=== PATIENT | male | born 1965 | race American Indian/Alaskan Native ===

== ENCOUNTER 2019-07-28 13:28 | Emergency (ER) | payer SELFPAY ==
--- NOTE | 2019-07-28 13:47 | Event Note ---
ED Screening Note Date of service: 07/28/19 Time: 13:43 ED Screening Note: Pt complains of nasal pain and congestion x 5 days denies hx of HTN states mild cough This initial assessment/diagnostic orders/clinical plan/treatment(s) is/are subject to change based on patients health status, clinical progression and re- assessment by fellow clinical providers in the ED. Further treatment and workup at subsequent clinical providers discretion. Patient/guardian urged not to elope from the ED as their condition may be serious if not clinically assessed and managed. Initial orders include: labs
--- NOTE | 2019-07-28 15:00 | Emergency Department Report ---
Minor Respiratory - HPI Chief Complaint: Upper Respiratory Infection Stated Complaint: FLU SYMPTOMS Time Seen by Provider: 07/28/19 13:42 Duration: 5 Days Pain Location: Facial, Nose Severity: mild Minor Respiratory: Yes Rhinorrhea, Yes Able to Tolerate Fluids, Yes Cough, No Sore Throat, No Ear Pain, No Sick Contacts, No Hemoptysis, No Chest Pain, No Shortness of Breath, No Fever Other History: This is a pleasant 54-year-old gentleman who is not known to this provider previously. He does not have a primary care doctor, has not seen a physician in 4 years, and does not have any formal medical history that he is aware of. He does not smoke cigarettes or consume any inhalational substances. He presents to the ER with 5 days of "flulike symptoms." He endorses sinus pressure, cough, nasal congestion. He denies severe headache, neck pain, chest pain, abdominal pain, shortness of breath, fever, chills. He denies additional symptoms. As far as he knows, he has no formal diagnosis of hypertension. ED Review of Systems ROS: Stated complaint: FLU SYMPTOMS Other details as noted in HPI Constitutional: see HPI. denies: fever Eyes: as per HPI ENT: congestion Respiratory: cough Cardiovascular: as per HPI Gastrointestinal: as per HPI Genitourinary: as per HPI Musculoskeletal: as per HPI Skin: as per HPI Neurological: as per HPI Psychiatric: as per HPI ED Past Medical Hx - Past Medical History Previous Medical History?: No - Surgical History Past Surgical History?: No - Social History Smoking Status: Never Smoker Substance Use Type: None - Medications Home Medications: Home Medications Medication Instructions Recorded Confirmed Last Taken Type Albuterol Sulfate [Proair 90 mcg IH Q4HR PRN #2 aer.[email or web address] 07/28/19 Unknown Rx Respiclick] Fluticasone [Flonase] 1 spray NS QDAY #1 bottle 07/28/19 Unknown Rx Ibuprofen [Motrin] 600 mg PO Q8H PRN #30 tablet 07/28/19 Unknown Rx Multivitamin with Folic Acid [Cvs 400 mcg PO QDAY #30 tablet 07/28/19 Unknown Rx One Daily Essential Tablet] Minor Respiratory Exam - Exam General: Vital signs noted. No distress. Alert and acting appropriately. HEENT: Yes Moist Mucous Membranes, Yes Rhinorrhea, No Pharyngeal Erythema, No Pharyngeal Exudates, No Conjuctival Injection, No Frontal Tenderness, No Maxillary Tenderness Ear: Neither EAC Pain, Neither EAC Discharge Neck: Yes Supple, No Adenopathy Lungs: Yes Good Air Exchange, No Wheezes, No Ronchi, No Stridor, No Cough, No Labored Respirations, No Retractions, No Use of Accessory Muscles, No Other Abnormal Lung Sounds Heart: Yes Regular, No Murmur Abdomen: Yes Normal Bowel Sounds, No Tenderness, No Peritoneal Signs Skin: No Rash, No Edema Neurologic: Alert and oriented, no deficits. there is no facial droop. The tongue is midline. Extraocular movements are intact bilaterally. Patient speaking in full complete sentences. Shoulder shrug is intact bilaterally. Hearing is grossly intact bilaterally. Visual acuity intact to finger counting and color perception at a close distance. 5/5 strength 4 extremities. Sensation intact to light touch in 4 extremities. 2+ pulses noted in the bilateral upper, lower extremities. There is no long bone tenderness. Musculoskeletal compartments are soft. The pelvis is stable. Musculoskeletal: Unremarkable. ED Course Vital Signs 07/28/19 13:42 Temperature 99.6 F Pulse Rate 86 Respiratory 20 Rate Blood Pressure 195/129 O2 Sat by Pulse 97 Oximetry ED Medical Decision Making - Lab Data Vital Signs 07/28/19 13:42 Temperature 99.6 F Pulse Rate 86 Respiratory 20 Rate Blood Pressure 195/129 O2 Sat by Pulse 97 Oximetry - Medical Decision Making Differential diagnosis, including but not limited to: Cold, viral syndrome, sinusitis, incidental elevated blood pressure Assessment and plan: 54-year-old gentleman who is afebrile with reassuring vital signs with the exception of incidental hypertension, with cold-like symptoms, including cough, nasal congestion, sinus pressure. Symptoms present for over 5 days. Clinically does not sound consistent with influenza-like illness, and given duration of symptoms, is not a candidate for Tamiflu. Counseled patient that he likely has cold/viral symptoms, and we discussed expectant management. Please reference the [employer] clinical policy on hypertension which is asymptomatic. Patient is instructed to follow-up with an outpatient primary care doctor for further evaluation of elevated blood pressure. We discussed diet, lifestyle modifications, and weight loss recommendations. Critical care attestation.: If time is entered above; I have spent that time in minutes in the direct care of this critically ill patient, excluding procedure time. ED Disposition Clinical Impression: Bronchitis, Elevated blood pressure reading Disposition: [id number] TO HOME OR SELFCARE Is pt being admited?: No Does the pt Need Aspirin: No Condition: Stable Additional Instructions: Take medications as needed and/or directed. Follow-up with a primary care doctor within the next month. Patient is found to have elevated blood pressure in the emergency room today. He is to follow up with a primary care doctor for this. We also recommend modification of diet, avoidance of carbonated sugary drinks, avoidance of fried food, carbohydrates, and consumption of plenty of lean protein, and vegetables. Long-term complications of hypertension and elevated blood pressure includes stroke, heart attack, disability, paralysis, loss of quality of life. Bronchitis symptoms may persist for up to 6 weeks. There is typically no cure for this. Please return to the emergency room right away with new, worsened, different symptoms, or symptoms not present on the initial emergency room evaluation. Referrals: [facility] [Provider Group] - 3-5 Days [facility] [Provider Group] - 3-5 Days
[2019-07-28 15:01] VITALS: BP 184/110
== END 2019-07-28 15:16 | disposition home or self-care (01) ==
LOC: ED 13:28
DX: J40 Bronchitis, not specified as acute or chronic (principal); R03.0 Elevated blood-pressure reading, without diagnosis of hypertension

== ENCOUNTER 2020-10-11 11:32 | Inpatient (IN) | payer OTHER ==
--- NOTE | 2020-10-11 12:16 | Event Note ---
ED Screening Note ED Screening Note: Patient is a 55-year-old male presents emergency room complaints of chest pain and shortness of breath that has been occurring for a month and a half. He states that he also gets a burning sensation in the epigastric region that goes up into the chest. Patient states last year he was advised that he had elevated blood pressure when he went to see a doctor about his knee but never followed up with a primary care doctor regarding the blood pressure. He is not on any blood pressure medication. He states that he does take aspirin daily due to the chest pain. He has not seen anyone for this chest pain or shortness of breath. He states that he is having exertional shortness of breath and can no longer walk far distances. He denies any known medical problems. No allergies to medications. This initial assessment/diagnostic orders/clinical plan/treatment(s) is/are subject to change based on patients health status, clinical progression and re- assessment by fellow clinical providers in the ED. Further treatment and workup at subsequent clinical providers discretion. Patient/guardian urged not to elope from the ED as their condition may be serious if not clinically assessed and managed. Initial orders include: Chest pain protocol
--- NOTE | 2020-10-11 12:57 | XRay Report ---
CHEST 2 VIEWS INDICATION / CLINICAL INFORMATION: Chest Pain. COMPARISON: None available. FINDINGS: SUPPORT DEVICES: None. HEART / MEDIASTINUM: Enlarged cardiac silhouette. Mediastinal and hilar contours demonstrate no signi ficant abnormality. LUNGS / PLEURA: Mild prominence of the central/perihilar interstitium. No significant effusion. No pn eumothorax. ADDITIONAL FINDINGS: No significant additional findings. IMPRESSION: 1. Mild central/perihilar interstitial opacification suggesting pulmonary congestion/edema. Signer Name: Monroe Huggins MD Signed: 10/11/2020 12:52 PM Workstation Name: [id number]
[2020-10-11 13:45] LABS: Basophils % (Auto) 0.9 % (0.0-1.8); Eosinophils # (Auto) 0.1 K/mm3 (0.0-0.4); Hematocrit 32.4 % (35.5-45.6); Hemoglobin 10.1 gm/dl (11.8-15.2); Lymphocytes # (Auto) 1.1 K/mm3 (1.2-5.4); Lymphocytes % (Auto) 25.6 % (13.4-35.0); Mean Corpuscular HGB Conc 31 % (32-34); Mean Corpuscular Volume 74 fl (84-94); Monocytes # (Auto) 0.3 K/mm3 (0.0-0.8); Monocytes % (Auto) 8.4 % (0.0-7.3); Platelet Count 291 K/mm3 (140-440); Red Blood Count 4.38 M/mm3 (3.65-5.03); Red Cell Distribution Width 18.8 % (13.2-15.2)
[2020-10-11 13:55] LABS: INR 1.28 (0.87-1.13); Partial Thromboplastin Time 33.5 Sec. (24.2-36.6)
[2020-10-11 14:08] LABS: Alanine Aminotransferase 74 units/L (7-56); Albumin 3.4 g/dL (3.9-5); BUN/Creatinine Ratio 18; Blood Urea Nitrogen 22 mg/dL (9-20); Calcium 10.6 mg/dL (8.4-10.2); Hemolysis Index 6
[2020-10-11] MEDS ORDERED: ASPIRIN 81 MG TAB CHEW PO ONE (20:17)
[2020-10-11] MEDS ORDERED: FUROSEMIDE 40 MG/4 ML INJ IV ONE (20:17)
--- NOTE | 2020-10-11 20:21 | Emergency Department Report ---
ED Chest Pain HPI - General Chief Complaint: Chest Pain Stated Complaint: UNK Time Seen by Provider: 10/11/20 12:14 Source: patient Mode of arrival: Ambulatory Limitations: No Limitations - History of Present Illness Initial Comments: This is a 55-year-old -German male presents to the emergency department with complaint of a 1 month history of upper abdominal pain, midsternal chest pain, and shortness of breath. The patient's symptoms have worsened over the past few days which is what prompted him to come to the emergency department. He has not taken anything for his symptoms prior to presentation. The patient also says that the shortness of breath worsens when laying flat or with any exertion. He denies any fever, nausea, vomiting, cough, back pain, constipation or diarrhea. No recent travel or sick contacts at home. He denies any tobacco or illicit drug use. No known exposure to anyone with COVID-19. Patient does not have a primary care physician and says that he has not followed up with a physician regularly for the past 10 years. Therefore the patient denies having any known past medical history. - Related Data Previous Rx's Medication Instructions Recorded Last Taken Type Albuterol Sulfate [Proair 90 mcg IH Q4HR PRN #2 aer.pow.ba 07/28/19 Unknown Rx Respiclick] Fluticasone [Flonase] 1 spray NS QDAY #1 bottle 07/28/19 Unknown Rx Ibuprofen [Motrin] 600 mg PO Q8H PRN #30 tablet 07/28/19 Unknown Rx Multivitamin with Folic Acid [Cvs 400 mcg PO QDAY #30 tablet 07/28/19 Unknown Rx One Daily Essential Tablet] Allergies Allergy/AdvReac Type Severity Reaction Status Date / Time No Known Allergies Allergy Unverified 07/28/19 13:46 Heart Score - HEART Score History: Slightly suspicious EKG: Normal Age: 45-65 Risk factors: No known risk factors Troponin: 1-3x normal limit HEART Score: 2 - Critical Actions Critical Actions: 0-3 pts:0.9-1.7%risk of adverse cardiac event.Candidate for discharge ED Review of Systems ROS: Stated complaint: UNK Other details as noted in HPI Comment: All other systems reviewed and negative Constitutional: denies: chills, fever Eyes: denies: eye pain, vision change ENT: denies: ear pain, throat pain Respiratory: orthopnea, shortness of breath, SOB with exertion Cardiovascular: chest pain. denies: palpitations Gastrointestinal: abdominal pain. denies: vomiting Genitourinary: denies: dysuria, discharge Musculoskeletal: denies: back pain, arthralgia Skin: denies: rash, lesions Neurological: denies: headache, weakness ED Past Medical Hx - Past Medical History Previous Medical History?: No - Social History Smoking Status: Never Smoker Substance Use Type: None - Medications Home Medications: Home Medications Medication Instructions Recorded Confirmed Last Taken Type Albuterol Sulfate [Proair 90 mcg IH Q4HR PRN #2 aer.pow.ba 07/28/19 Unknown Rx Respiclick] Fluticasone [Flonase] 1 spray NS QDAY #1 bottle 07/28/19 Unknown Rx Ibuprofen [Motrin] 600 mg PO Q8H PRN #30 tablet 07/28/19 Unknown Rx Multivitamin with Folic Acid [Cvs 400 mcg PO QDAY #30 tablet 07/28/19 Unknown Rx One Daily Essential Tablet] ED Physical Exam - General Limitations: No Limitations - Other Other exam information: GENERAL: The patient is well-developed well-nourished. HENT: Normocephalic. Atraumatic. Patient has moist mucous membranes. EYES: Extraocular motions are intact. NECK: Supple. Trachea is midline. CHEST/LUNGS: Coarse breath sounds. No tachypnea or accessory muscle use. There is no respiratory distress noted. HEART/CARDIOVASCULAR: Regular. There is no tachycardia. There is no murmur. ABDOMEN: Abdomen is soft. There is epigastric and right upper quadrant abdominal tenderness to palpation. Patient has normal bowel sounds. Obese habitus. SKIN: Skin is warm and dry. NEURO: The patient is awake, alert, and oriented. The patient is cooperative. The patient has no focal neurologic deficits. Normal speech. MUSCULOSKELETAL: There is no tenderness or deformity. There is no limitation range of motion. ED Course Vital Signs 10/11/20 10/11/20 10/11/20 11:45 11:58 20:47 Temperature 97.6 F 97.6 F 98.4 F Pulse Rate 104 H 94 H Respiratory 20 22 Rate Blood Pressure 192/136 Blood Pressure 189/141 [Left] O2 Sat by Pulse 91 98 Oximetry 10/11/20 10/12/20 10/12/20 20:54 01:10 01:46 Temperature Pulse Rate 94 H 99 H 74 Respiratory Rate Blood Pressure 189/141 188/113 173/116 Blood Pressure [Left] O2 Sat by Pulse Oximetry 10/12/20 01:48 Temperature Pulse Rate 75 Respiratory Rate Blood Pressure 173/116 Blood Pressure [Left] O2 Sat by Pulse Oximetry BRIAN score - Brian Score Age > 65: (0) No Aspirin use within the Past 7 Days: (0) No 2 or more Angina events in past 24 hrs: (1) Yes Known CAD with more than 50% Stenosis: (0) No Elevated Cardiac Markers: (0) No ST Deviation Greater than 0.5mm: (0) No ED Medical Decision Making - Lab Data Result diagrams: 10/11/20 12:55 10/11/20 12:55 Lab Results 10/11/20 10/11/20 10/11/20 Range/Units 12:55 12:55 12:55 WBC 4.2 L (4.5-11.0) K/mm3 RBC 4.38 (3.65-5.03) M/mm3 Hgb 10.1 L (11.8-15.2) gm/dl Hct 32.4 L (35.5-45.6) % MCV 74 L (84-94) fl MCH 23 L (28-32) pg MCHC 31 L (32-34) % RDW 18.8 H (13.2-15.2) % Plt Count 291 (140-440) K/mm3 Lymph % (Auto) 25.6 (13.4-35.0) % [place] % (Auto) 8.4 H (0.0-7.3) % Eos % (Auto) 2.0 (0.0-4.3) % Baso % (Auto) 0.9 (0.0-1.8) % Lymph # (Auto) 1.1 L (1.2-5.4) K/mm3 [place] # (Auto) 0.3 (0.0-0.8) K/mm3 Eos # (Auto) 0.1 (0.0-0.4) K/mm3 Baso # (Auto) 0.0 (0.0-0.1) K/mm3 Seg Neutrophils % 63.1 (40.0-70.0) % Seg Neutrophils # 2.6 (1.8-7.7) K/mm3 PT 16.0 H (12.2-14.9) Sec. INR 1.28 H (0.87-1.13) APTT 33.5 (24.2-36.6) Sec. D-Dimer (0-234) ng/mlDDU Sodium 141 (137-145) mmol/L Potassium 4.6 (3.6-5.0) mmol/L Chloride 106.9 (98-107) mmol/L Carbon Dioxide 27 (22-30) mmol/L Anion Gap 12 mmol/L BUN 22 H (9-20) mg/dL Creatinine 1.2 (0.8-1.3) mg/dL Estimated GFR > 60 ml/min BUN/Creatinine Ratio 18 % Glucose 101 H (75-100) mg/dL Hemoglobin A1c (4-6) % Calcium 10.6 H (8.4-10.2) mg/dL Ferritin (30.0-300.0) ng/mL Total Bilirubin 1.50 H (0.1-1.2) mg/dL AST 60 H (5-40) units/L ALT 74 H (7-56) units/L Alkaline Phosphatase 134 H (35-129) units/L Lactate Dehydrogenase (91-180) units/L Troponin T 0.025 (0.00-0.029) ng/mL C-Reactive Protein (0.00-1.30) mg/dL NT-Pro-B Natriuret Pep 2622 H (0-900) pg/mL Total Protein 6.7 (6.3-8.2) g/dL Albumin 3.4 L (3.9-5) g/dL Albumin/Globulin Ratio 1.0 % Triglycerides (2-149) mg/dL Cholesterol (50-199) mg/dL LDL Cholesterol Direct (50-130) mg/dL HDL Cholesterol (40-59) mg/dL Cholesterol/HDL Ratio % Hepatitis A IgM Ab (NonReactive) Hep Bs Antigen (Negative) Hep B Core IgM Ab (NonReactive) Hepatitis C Antibody (NonReactive) 10/11/20 10/11/20 10/11/20 Range/Units 12:55 16:54 20:20 WBC (4.5-11.0) K/mm3 RBC (3.65-5.03) M/mm3 Hgb (11.8-15.2) gm/dl Hct (35.5-45.6) % MCV (84-94) fl MCH (28-32) pg MCHC (32-34) % RDW (13.2-15.2) % Plt Count (140-440) K/mm3 Lymph % (Auto) (13.4-35.0) % [place] % (Auto) (0.0-7.3) % Eos % (Auto) (0.0-4.3) % Baso % (Auto) (0.0-1.8) % Lymph # (Auto) (1.2-5.4) K/mm3 [place] # (Auto) (0.0-0.8) K/mm3 Eos # (Auto) (0.0-0.4) K/mm3 Baso # (Auto) (0.0-0.1) K/mm3 Seg Neutrophils % (40.0-70.0) % Seg Neutrophils # (1.8-7.7) K/mm3 PT (12.2-14.9) Sec. INR (0.87-1.13) APTT (24.2-36.6) Sec. D-Dimer (0-234) ng/mlDDU Sodium (137-145) mmol/L Potassium (3.6-5.0) mmol/L Chloride (98-107) mmol/L Carbon Dioxide (22-30) mmol/L Anion Gap mmol/L BUN (9-20) mg/dL Creatinine (0.8-1.3) mg/dL Estimated GFR ml/min BUN/Creatinine Ratio % Glucose (75-100) mg/dL Hemoglobin A1c 6.7 H (4-6) % Calcium (8.4-10.2) mg/dL Ferritin (30.0-300.0) ng/mL Total Bilirubin (0.1-1.2) mg/dL AST (5-40) units/L ALT (7-56) units/L Alkaline Phosphatase (35-129) units/L Lactate Dehydrogenase (91-180) units/L Troponin T 0.027 (0.00-0.029) ng/mL C-Reactive Protein (0.00-1.30) mg/dL NT-Pro-B Natriuret Pep (0-900) pg/mL Total Protein (6.3-8.2) g/dL Albumin (3.9-5) g/dL Albumin/Globulin Ratio % Triglycerides 74 (2-149) mg/dL Cholesterol 145 (50-199) mg/dL LDL Cholesterol Direct 105 (50-130) mg/dL HDL Cholesterol 35 L (40-59) mg/dL Cholesterol/HDL Ratio 4.14 % Hepatitis A IgM Ab (NonReactive) Hep Bs Antigen (Negative) Hep B Core IgM Ab (NonReactive) Hepatitis C Antibody (NonReactive) 10/11/20 10/11/20 10/11/20 Range/Units 20:20 20:26 20:26 WBC (4.5-11.0) K/mm3 RBC (3.65-5.03) M/mm3 Hgb (11.8-15.2) gm/dl Hct (35.5-45.6) % MCV (84-94) fl MCH (28-32) pg MCHC (32-34) % RDW (13.2-15.2) % Plt Count (140-440) K/mm3 Lymph % (Auto) (13.4-35.0) % [place] % (Auto) (0.0-7.3) % Eos % (Auto) (0.0-4.3) % Baso % (Auto) (0.0-1.8) % Lymph # (Auto) (1.2-5.4) K/mm3 [place] # (Auto) (0.0-0.8) K/mm3 Eos # (Auto) (0.0-0.4) K/mm3 Baso # (Auto) (0.0-0.1) K/mm3 Seg Neutrophils % (40.0-70.0) % Seg Neutrophils # (1.8-7.7) K/mm3 PT (12.2-14.9) Sec. INR (0.87-1.13) APTT (24.2-36.6) Sec. D-Dimer 391.27 H (0-234) ng/mlDDU Sodium (137-145) mmol/L Potassium (3.6-5.0) mmol/L Chloride (98-107) mmol/L Carbon Dioxide (22-30) mmol/L Anion Gap mmol/L BUN (9-20) mg/dL Creatinine (0.8-1.3) mg/dL Estimated GFR ml/min BUN/Creatinine Ratio % Glucose (75-100) mg/dL Hemoglobin A1c (4-6) % Calcium (8.4-10.2) mg/dL Ferritin 32.6 (30.0-300.0) ng/mL Total Bilirubin (0.1-1.2) mg/dL AST (5-40) units/L ALT (7-56) units/L Alkaline Phosphatase (35-129) units/L Lactate Dehydrogenase (91-180) units/L Troponin T (0.00-0.029) ng/mL C-Reactive Protein (0.00-1.30) mg/dL NT-Pro-B Natriuret Pep (0-900) pg/mL Total Protein (6.3-8.2) g/dL Albumin (3.9-5) g/dL Albumin/Globulin Ratio % Triglycerides (2-149) mg/dL Cholesterol (50-199) mg/dL LDL Cholesterol Direct (50-130) mg/dL HDL Cholesterol (40-59) mg/dL Cholesterol/HDL Ratio % Hepatitis A IgM Ab Non-reactive (NonReactive) Hep Bs Antigen Non-reactive (Negative) Hep B Core IgM Ab Non-reactive (NonReactive) Hepatitis C Antibody Non-reactive (NonReactive) 10/11/20 10/11/20 Range/Units 20:26 20:31 WBC (4.5-11.0) K/mm3 RBC (3.65-5.03) M/mm3 Hgb (11.8-15.2) gm/dl Hct (35.5-45.6) % MCV (84-94) fl MCH (28-32) pg MCHC (32-34) % RDW (13.2-15.2) % Plt Count (140-440) K/mm3 Lymph % (Auto) (13.4-35.0) % [place] % (Auto) (0.0-7.3) % Eos % (Auto) (0.0-4.3) % Baso % (Auto) (0.0-1.8) % Lymph # (Auto) (1.2-5.4) K/mm3 [place] # (Auto) (0.0-0.8) K/mm3 Eos # (Auto) (0.0-0.4) K/mm3 Baso # (Auto) (0.0-0.1) K/mm3 Seg Neutrophils % (40.0-70.0) % Seg Neutrophils # (1.8-7.7) K/mm3 PT (12.2-14.9) Sec. INR (0.87-1.13) APTT (24.2-36.6) Sec. D-Dimer (0-234) ng/mlDDU Sodium (137-145) mmol/L Potassium (3.6-5.0) mmol/L Chloride (98-107) mmol/L Carbon Dioxide (22-30) mmol/L Anion Gap mmol/L BUN (9-20) mg/dL Creatinine (0.8-1.3) mg/dL Estimated GFR ml/min BUN/Creatinine Ratio % Glucose (75-100) mg/dL Hemoglobin A1c (4-6) % Calcium (8.4-10.2) mg/dL Ferritin (30.0-300.0) ng/mL Total Bilirubin (0.1-1.2) mg/dL AST (5-40) units/L ALT (7-56) units/L Alkaline Phosphatase (35-129) units/L Lactate Dehydrogenase 435 H (91-180) units/L Troponin T 0.028 (0.00-0.029) ng/mL C-Reactive Protein 0.60 (0.00-1.30) mg/dL NT-Pro-B Natriuret Pep (0-900) pg/mL Total Protein (6.3-8.2) g/dL Albumin (3.9-5) g/dL Albumin/Globulin Ratio % Triglycerides (2-149) mg/dL Cholesterol (50-199) mg/dL LDL Cholesterol Direct (50-130) mg/dL HDL Cholesterol (40-59) mg/dL Cholesterol/HDL Ratio % Hepatitis A IgM Ab (NonReactive) Hep Bs Antigen (Negative) Hep B Core IgM Ab (NonReactive) Hepatitis C Antibody (NonReactive) - EKG Data -: EKG Interpreted by Ca EKG shows normal: sinus rhythm, axis, intervals, QRS complexes (LVH), ST-T waves Rate: normal - EKG Data When compared to previous EKG there are: previous EKG unavailable Interpretation: LVH - Radiology Data Radiology results: report reviewed CHEST 2 VIEWS INDICATION / CLINICAL INFORMATION: Chest Pain. COMPARISON: None available. FINDINGS: SUPPORT DEVICES: None. HEART / MEDIASTINUM: Enlarged cardiac silhouette. Mediastinal and hilar contours demonstrate no significant abnormality. LUNGS / PLEURA: Mild prominence of the central/perihilar interstitium. No significant effusion. No pneumothorax. ADDITIONAL FINDINGS: No significant additional findings. IMPRESSION: 1. Mild central/perihilar i nterstitial opacification suggesting pulmonary congestion/edema. CTA CHEST WITH CONTRAST INDICATION / CLINICAL INFORMATION: Mid sternal CP to abdomen, elevated dimer. TECHNIQUE: Axial CT images were obtained through the chest after injection of 100 cc of Omnipaque 350 IV contrast. 3 plane MIP and/or 3D reconstructions were produced. All CT scans at this location are performed using CT dose reduction for ALARA by means of automated exposure control. COMPARISON: None available. FINDINGS: PULMONARY ARTERIES: No pulmonary emboli. THORACIC AORTA: Normal in diameter HEART: Mildly enlarged CORONARY ARTERY CALCIFICATION: Mild to moderate2 MEDIASTINUM / MARIO: No significant abnormality. PLEURA: No pleural effusion. No pneumothorax. LUNGS: No acute air space or inte rstitial disease. ADDITIONAL FINDINGS: None. UPPER ABDOMEN: No acute findings. SKELETAL STRUCTURES: No significant osseous abnormality. IMPRESSION: 1. No CT evidence for pulmonary embolism. 2. Mild to moderate atherosclerotic calcifications are noted in the coronary arteries. - Medical Decision Making This patient presents to the emergency department with complaint of upper abdominal pain, chest pain, and shortness of breath that has been going on for the past month but worsened recently. He had a room air pulse ox of 91% through triage. With these symptoms and the hypoxia, and given this current pandemic, the patient was suspected for COVID-19. The patient was placed in patient isolation and droplet precautions immediately upon arrival to the main emergency department. I wore full PPE gear including a surgical hat, goggles, N95 mask, surgical mask, gown, and double gloves for every encounter. Chest x-ray showed some perihilar infiltrates versus edema. EKG shows LVH, but there is no morphology consistent with ST elevation myocardial infarction. Patient's labs show elevated inflammatory markers that could be consistent with COVID-19, such as elevated D-dimer level, LDH and ferritin. The patient's 3 troponins were within the normal range but began trending up. There is an elevation in the proBNP of about 2200. This, along with the chest x-ray findings, and mild lower extremity swelling, appear consistent with CHF. With the patient's complaints of chest pain, shortness of breath and upper abdominal pain, as well as the elevated D-dimer level, the patient had a CT angiography of the chest. The CT angiography resulted as negative for any pulmonary embolism, dissection, or any other acute process. They were able to see the upper abdomen which also did not show any acute process. The patient presented with very elevated blood pressure. He was given multiple doses of antihypertensive medication with some mild improvement Patient will be admitted to the hospital for further evaluation and treatment and has been accepted for admission by the hospitalist, Dr. Warner. Critical Care Time: Yes Critical care time in (mins) excluding proc time.: 35 Critical care attestation.: If time is entered above; I have spent that time in minutes in the direct care of this critically ill patient, excluding procedure time. Critical care time was spent on this patient in doing his initial evaluation, multiple reevaluations, ordering and interpretation of labs and imaging, supplemental oxygen for the hypoxemia, IV antihypertensive medication for his hypertensive urgency, multiple discussions with the patient. Critical Care Time: 35 minutes ED Disposition Clinical Impression: Suspected 2019 novel coronavirus infection, Hypertensive urgency, Acute chest pain, Elevated brain natriuretic peptide (BNP) level Disposition: 09 OP ADMIT IP TO THIS HOSP Is pt being admited?: Yes Condition: Serious Time of Disposition: 23:28
[2020-10-11] MEDS ORDERED: METOPROLOL TARTRATE 5 MG/5 ML INJ IV ONE (20:45)
[2020-10-11 21:26] LABS: C-Reactive Protein 0.6 mg/dL (0.00-1.30)
--- NOTE | 2020-10-11 23:24 | Cat Scan Report ---
CTA CHEST WITH CONTRAST INDICATION / CLINICAL INFORMATION: Mid sternal CP to abdomen, elevated dimer. TECHNIQUE: Axial CT images were obtained through the chest after injection of 100 cc of Omnipaque 350 IV contrast. 3 plane MIP and/or 3D reconstructions were produced. All CT scans at this location are performed using CT dose reduction for ALARA by means of automated exposure control. COMPARISON: None available. FINDINGS: PULMONARY ARTERIES: No pulmonary emboli. THORACIC AORTA: Normal in diameter HEART: Mildly enlarged CORONARY ARTERY CALCIFICATION: Mild to moderate2 MEDIASTINUM / MARIO: No significant abnormality. PLEURA: No pleural effusion. No pneumothorax. LUNGS: No acute air space or interstitial disease. ADDITIONAL FINDINGS: None. UPPER ABDOMEN: No acute findings. SKELETAL STRUCTURES: No significant osseous abnormality. IMPRESSION: 1. No CT evidence for pulmonary embolism. 2. Mild to moderate atherosclerotic calcifications are noted in the coronary arteries. Signer Name: Terrell Ahn MD Signed: 10/11/2020 11:20 PM Workstation Name: [id number]
[2020-10-11] MEDS ORDERED: ACETAMINOPHEN 325 MG TAB PO PRN (23:37)
[2020-10-11] MEDS ORDERED: ONDANSETRON 4 MG/2 ML INJ IV PRN (23:37)
[2020-10-11] MEDS ORDERED: oxyCODONE /ACETAMINOPHEN 5-325MG TAB PO PRN (23:37)
[2020-10-11] MEDS ORDERED: ALBUTEROL 8.5 GM MDI INHALATION IH PRN (23:51)
--- NOTE | 2020-10-12 00:26 | History and Physical Report ---
History of Present Illness Date of examination: 10/11/20 Date of admission: 10/11/2020 Chief complaint: chest pain, abdominal pain, shortness of breath History of present illness: 55-year-old -[place] male with history of hypertension not on meds who presents to [facility] ED with complaints of odalys pain, chest pain, and shortness of breath. Patient states that he has been experiencing right upper quadrant and left upper quadrant aching abdominal pain x1 month. The abdominal pain is constant and there are no relieving factors. For the past week patient has been experiencing midsternal 6/10 nonradiating chest pain and shortness of breath. Shortness of breath is worse with exertion, and laying flat. Patient denies taking any medication (including OTC) for his chest pain, abdominal pain, and shortness of breath. He admits to being diagnosed with hypertension sometime last year but was unable to seek medical care due to lack of insurance. He had to wait for open enrollment with his employer which was in July to sign up for health insurance coverage, with coverage period starting September 16, 2020. He does not have PCP and his last physical was approximately 10 years ago. Denies fever, chills, headache, sore throat, palpitations, nausea, vomiting, diarrhea, constipation, melena, hematuria, hemoptysis, loss of smell, loss of taste, or recent sick contacts Past History Past Medical History: other (Obesity, hypertension) Past Surgical History: Other (Denies surgical history) Social history: (Not legally , not living together), Lives alone, full code. denies: smoking, alcohol abuse, prescription drug abuse, IV drug use Family history: hypertension Medications and Allergies Allergies Allergy/AdvReac Type Severity Reaction Status Date / Time No Known Allergies Allergy Unverified 07/28/19 13:46 Home Medications Medication Instructions Recorded Confirmed Last Taken Type Albuterol Sulfate [Proair 90 mcg IH Q4HR PRN #2 aer.pow.ba 07/28/19 Unknown Rx Respiclick] Fluticasone [Flonase] 1 spray NS QDAY #1 bottle 07/28/19 Unknown Rx Ibuprofen [Motrin] 600 mg PO Q8H PRN #30 tablet 07/28/19 Unknown Rx Multivitamin with Folic Acid [Cvs 400 mcg PO QDAY #30 tablet 11/12/19 Unknown Rx One Daily Essential Tablet] Active Meds: Active Medications Acetaminophen (Acetaminophen 325 Mg Tab) 650 mg PO Q4H PRN PRN Reason: Pain MILD(1-3)/Fever >100.5/CHOI Albuterol (Albuterol 8.5 Gm Mdi Inhalation) 2 puff IH Q4HRT PRN PRN Reason: Shortness Of Breath Aspirin (Aspirin 81 Mg Tab Chew) 81 mg PO QDAY MACIE Atorvastatin Calcium (Atorvastatin 20 Mg Tab) 20 mg PO QHS MACIE Bisacodyl (Bisacodyl 10 Mg Rect Supp) 10 mg [place] QDAY PRN PRN Reason: Constipation unrelieved by MOM Carvedilol (Carvedilol 6.25 Mg Tab) 6.25 mg PO BID MACIE Docusate Sodium (Docusate Sodium 100 Mg Cap) 100 mg PO BID MACIE Enoxaparin Sodium (Enoxaparin 40 Mg/0.4 Ml Inj) 40 mg SUB-Q QDAY@2200 MACIE; Protocol Furosemide (Furosemide 40 Mg/4 Ml Inj) 40 mg IV QDAY MACIE Labetalol HCl (Labetalol 20 Mg/4 Ml Inj) 10 mg IV ONCE ONE Stop: 10/12/20 00:35 Losartan Potassium (Losartan 50 Mg Tab) 50 mg PO QDAY MACIE Ondansetron HCl (Ondansetron 4 Mg/2 Ml Inj) 4 mg IV Q6H PRN PRN Reason: Nausea And Vomiting Oxycodone/Acetaminophen (Oxycodone /Acetaminophen 5-325mg Tab) 1 tab PO Q6H PRN PRN Reason: Pain, Moderate (4-6) Sodium Chloride (Sodium Chloride 0.9% 10 Ml Flush Syringe) 10 ml IV BID MACIE Sodium Chloride (Sodium Chloride 0.9% 10 Ml Flush Syringe) 10 ml IV PRN PRN PRN Reason: LINE FLUSH Review of Systems All systems: negative (Except as noted in HPI) Exam - Physical Exam Narrative exam: Physical exam General appearance: Present: Obese, alert and oriented 3, pleasant - [place]ian adult male - EENT Eyes: Present: PERRL, EOM intact ENT: hearing intact, normal dentition - Neck Neck: Present: supple, normal ROM - Respiratory Respiratory effort: Slightly labored with activity Respiratory: Diminished bases - Cardiovascular Heart rate: 104 (bpm) Rhythm: Sinus tachycardia Heart Sounds: Present: S1 & S2. Absent: rub, click - Extremities Extremities: no ischemia, pulses intact, BLE trace edema - Peripheral Assessment Peripheral Pulses: within normal limits - Abdominal General gastrointestinal: Limited due to body habitus, obese, soft, non-tender, normal bowel sounds - Integumentary Integumentary: Present: warm, dry - Musculoskeletal Musculoskeletal: Able to move all extremities, normal gait -Neurological Neurological: CN II-XII intact - Psychiatric Psychiatric: cooperative - Constitutional Vitals: Temp Pulse Resp BP Pulse Ox 98.4 F 94 H 22 189/141 98 10/11/20 20:47 10/11/20 20:54 10/11/20 20:47 10/11/20 20:54 10/11/20 20:47 HEART Score - HEART Score EKG: Normal Age: 45-65 Risk factors: No known risk factors Troponin: Troponin T 0.028 ng/mL (0.00-0.029) 10/11/20 20:31 Troponin: 1-3x normal limit Results - Labs CBC & Chem 7: 10/11/20 12:55 10/11/20 12:55 Labs: Laboratory Last Values WBC 4.2 K/mm3 (4.5-11.0) L 10/11/20 12:55 RBC 4.38 M/mm3 (3.65-5.03) 10/11/20 12:55 Hgb 10.1 gm/dl (11.8-15.2) L 10/11/20 12:55 Hct 32.4 % (35.5-45.6) L 10/11/20 12:55 MCV 74 fl (84-94) L 10/11/20 12:55 MCH 23 pg (28-32) L 10/11/20 12:55 MCHC 31 % (32-34) L 10/11/20 12:55 RDW 18.8 % (13.2-15.2) H 10/11/20 12:55 Plt Count 291 K/mm3 (140-440) 10/11/20 12:55 Lymph % (Auto) 25.6 % (13.4-35.0) 10/11/20 12:55 [place] % (Auto) 8.4 % (0.0-7.3) H 10/11/20 12:55 Eos % (Auto) 2.0 % (0.0-4.3) 10/11/20 12:55 Baso % (Auto) 0.9 % (0.0-1.8) 10/11/20 12:55 Lymph # (Auto) 1.1 K/mm3 (1.2-5.4) L 10/11/20 12:55 [place] # (Auto) 0.3 K/mm3 (0.0-0.8) 10/11/20 12:55 Eos # (Auto) 0.1 K/mm3 (0.0-0.4) 10/11/20 12:55 Baso # (Auto) 0.0 K/mm3 (0.0-0.1) 10/11/20 12:55 Seg Neutrophils % 63.1 % (40.0-70.0) 10/11/20 12:55 Seg Neutrophils # 2.6 K/mm3 (1.8-7.7) 10/11/20 12:55 PT 16.0 Sec. (12.2-14.9) H 10/11/20 12:55 INR 1.28 (0.87-1.13) H 10/11/20 12:55 APTT 33.5 Sec. (24.2-36.6) 10/11/20 12:55 D-Dimer 391.27 ng/mlDDU (0-234) H 10/11/20 20:26 Sodium 141 mmol/L (137-145) 10/11/20 12:55 Potassium 4.6 mmol/L (3.6-5.0) 10/11/20 12:55 Chloride 106.9 mmol/L (98-107) 10/11/20 12:55 Carbon Dioxide 27 mmol/L (22-30) 10/11/20 12:55 Anion Gap 12 mmol/L 10/11/20 12:55 BUN 22 mg/dL (9-20) H 10/11/20 12:55 Creatinine 1.2 mg/dL (0.8-1.3) 10/11/20 12:55 Estimated GFR > 60 ml/min 10/11/20 12:55 BUN/Creatinine Ratio 18 % 10/11/20 12:55 Glucose 101 mg/dL (75-100) H 10/11/20 12:55 Calcium 10.6 mg/dL (8.4-10.2) H 10/11/20 12:55 Ferritin 32.6 ng/mL (30.0-300.0) 10/11/20 20:26 Total Bilirubin 1.50 mg/dL (0.1-1.2) H 10/11/20 12:55 AST 60 units/L (5-40) H 10/11/20 12:55 ALT 74 units/L (7-56) H 10/11/20 12:55 Alkaline Phosphatase 134 units/L (35-129) H 10/11/20 12:55 Lactate Dehydrogenase 435 units/L (91-180) H 10/11/20 20:26 Troponin T 0.028 ng/mL (0.00-0.029) 10/11/20 20:31 C-Reactive Protein 0.60 mg/dL (0.00-1.30) 10/11/20 20:26 NT-Pro-B Natriuret Pep 2622 pg/mL (0-900) H 10/11/20 12:55 Total Protein 6.7 g/dL (6.3-8.2) 10/11/20 12:55 Albumin 3.4 g/dL (3.9-5) L 10/11/20 12:55 Albumin/Globulin Ratio 1.0 % 10/11/20 12:55 - Imaging and Cardiology Imaging and Cardiology: CT Chest: IMPRESSION: 1. No CT evidence for pulmonary embolism. 2. Mild to moderate atherosclerotic calcifications are noted in the coronary arteries. CXR: IMPRESSION: 1. No CT evidence for pulmonary embolism. 2. Mild to moderate atherosclerotic calcifications are noted in the coronary arteries. Alvarez/IV: IV Catheter Type [Left Peripheral IV Antecubital] IV Catheter Type [Right Peripheral IV Forearm] Assessment and Plan Assessment and plan: Suspected COVID-19 virus -Complains of shortness of breath, admits to negative Covid 19 results at outpatient testing site on 10/08 -Isolated and swabbed -Start Decadron -Follow-up labs -ID consult Hypoxia -Currently on 4 L supplemental oxygen with saturation of 94 to 96% -No baseline home oxygen requirement -Monitor saturation -Albuterol as needed Acute atypical chest pain -Troponin elevated x3 -EKG unrevealing for acute ischemic abnormalities -Echo pending -Cardiology consult pending Acute abdominal pain -Complains of RUQ and LUQ abdominal pain x1 month -CT abdomen/pelvis pending -Supportive care Transaminitis -Hepatitis panel pending -CT abdomen pelvis pending -Day team may consider GI consult Hypertensive urgency -History of hypertension not on meds -IV antihypertensive as needed -Start oral antihypertensive meds to optimize BP -Monitor Elevated BNP -@ 2622 -Bilateral lower extremity pitting edema -Denies history of heart failure -?? New onset CHF -Start ASA, ARB, BB -Echo pending -Cardiology consult pending Elevated D-dimer -@391.27 -CT chest negative for PE Anemia -Stable at 10.1 -No S/S of active bleeding -Monitor -Transfuse as needed DVT PPX -On Lovenox Advance Directives: No VTE prophylaxis?: Chemical, Mechanical Plan of care discussed with patient/family: Yes
[2020-10-12 01:05] LABS: Hepatitis B Surface Antigen Non-Reactive (Negative); Hepatitis C Virus Antibody Non-Reactive (NonReactive)
--- NOTE | 2020-10-12 01:40 | Cat Scan Report ---
CT ABDOMEN AND PELVIS WITHOUT CONTRAST INDICATION / CLINICAL INFORMATION: Patient complains of abdominal pain, elevated LFT's. TECHNIQUE: Axial CT images were obtained through the abdomen and pelvis without IV contrast. All CT scans at [facility] location are performed using CT dose reduction for ALARA by means of automated exposure control. COMPARISON: None available. FINDINGS: LOWER CHEST: Mild enlargement of the heart. LIVER: No significant abnormality. GALLBLADDER: No significant abnormality. BILE DUCTS: No significant abnormality. PANCREAS: No significant abnormality. SPLEEN: No significant abnormality. ADRENALS: No significant abnormality. RIGHT KIDNEY and URETER: No significant abnormality. LEFT KIDNEY and URETER: No significant abnormality. There is contrast in the renal collecting systems from CT of the chest performed earlier. STOMACH and SMALL BOWEL: No significant abnormality. COLON: No significant abnormality. APPENDIX: No significant abnormality. PERITONEUM: No free fluid. No free air. No fluid collection. LYMPH NODES: No significant adenopathy. AORTA and ARTERIES: Mild atherosclerotic calcification without acute abnormality. IVC and VEINS: No significant abnormality. URINARY BLADDER: There is contrast media from the CTA of the chest performed earlier. No acute abnorm ality is seen. REPRODUCTIVE ORGANS: No significant abnormality. ADDITIONAL FINDINGS: None. SKELETAL SYSTEM: No acute abnormality IMPRESSION: 1. No acute abnormality. There is no obstruction, inflammation, or free air. Signer Name: Terrell Ahn MD Signed: 10/12/2020 1:35 AM Workstation Name: [id number]
[2020-10-12] MEDS ORDERED: amLODIPine 10 MG TAB PO ONE (01:55)
[2020-10-12 02:27] LABS: Chol/HDL Ratio 4.14 %
[2020-10-12 03:47] LABS: Amphetamine Screen,Urine PRESUMPTIVE NEGATIVE; Benzodiazepines Screen,Urine PRESUMPTIVE NEGATIVE; Cannabinoid Screen,Urine PRESUMPTIVE NEGATIVE; Cocaine Screen,Urine PRESUMPTIVE NEGATIVE; Methadone Screen,Urine PRESUMPTIVE NEGATIVE; Opiate Screen,Urine PRESUMPTIVE NEGATIVE
[2020-10-12] MEDS: hydrALAZINE 20 MG/1 ML INJ IV PRN ×3 (03:47→20:32)
[2020-10-12 06:27] LABS: BUN/Creatinine Ratio 21; Blood Urea Nitrogen 25 mg/dL (9-20); Calcium 10.7 mg/dL (8.4-10.2); Hemolysis Index 0
[2020-10-12 06:31] LABS: Eosinophils # (Auto) 0.1 K/mm3 (0.0-0.4); Eosinophils % (Auto) 1.2 % (0.0-4.3); Hematocrit 33.4 % (35.5-45.6); Hemoglobin 10.5 gm/dl (11.8-15.2); Lymphocytes # (Auto) 0.9 K/mm3 (1.2-5.4); Mean Corpuscular HGB Conc 31 % (32-34); Mean Corpuscular Volume 74 fl (84-94); Monocytes # (Auto) 0.3 K/mm3 (0.0-0.8); Monocytes % (Auto) 6.7 % (0.0-7.3); Platelet Count 318 K/mm3 (140-440); Red Blood Count 4.52 M/mm3 (3.65-5.03); Red Cell Distribution Width 19.2 % (13.2-15.2)
[2020-10-12] MEDS ORDERED: NON-FORMULARY EACH (Albuterol Sulfate [Proair Respiclick] 90 MCG Aer.Pow.Ba) IH PRN (08:06)
[2020-10-12] MEDS ORDERED: carvediloL 6.25 MG TAB PO SCH ×2 (10:00→11:27)
--- NOTE | 2020-10-12 10:15 | Consultation ---
History of Present Illness - Reason for Consult Consult date: 10/12/20 R/o COVID Requesting physician: IRVING ALFRED - History of Present Illness 55 years old male with history of hypertension, admitted on 10/11/2020 secondary to abdominal pain for a month, chest pain and shortness of breath. Patient has been complaining of left upper quadrant abdominal pain for 4 weeks. Pain is constant without relieving factors. Patient also reported midsternal 6 of 10 chest pain associated with shortness of breath. Also reports history on exertion. Patient denies any contact with COVID-19 patients. On arrival, temperature 97.6, HR 104, RR 20, O2 sat 91%, BP 192/136. Initial WBC 4.2. D- dimer 391. AST 60, ALT 74. Creatinine 1.2. Procalcitonin 0.05. Chest x-ray shows bilateral interstitial infiltrates. CTA shows no airspace disease, no PE. Patient is currently on 4 L nasal cannula. Review of Systems: reviewed ED and H&P notes. Review of system deferred to minimize COVID-19 transmission. Past History Past Medical History: other (Obesity, hypertension) Past Surgical History: Other (Denies surgical history) Social history: (Not legally , not living together), Lives alone, full code. denies: smoking, alcohol abuse, prescription drug abuse, IV drug use Family history: hypertension Medications and Allergies Allergies Allergy/AdvReac Type Severity Reaction Status Date / Time No Known Allergies Allergy Unverified 07/28/19 13:46 Home Medications Medication Instructions Recorded Confirmed Last Taken Type Albuterol Sulfate [Proair 90 mcg IH Q4HR PRN #2 aer.pow.ba 07/28/19 Unknown Rx Respiclick] Fluticasone [Flonase] 1 spray NS QDAY #1 bottle 07/28/19 Unknown Rx Ibuprofen [Motrin] 600 mg PO Q8H PRN #30 tablet 07/28/19 Unknown Rx Multivitamin with Folic Acid [Cvs 400 mcg PO QDAY #30 tablet 07/28/19 Unknown Rx One Daily Essential Tablet] Active Meds: Active Medications Acetaminophen (Acetaminophen 325 Mg Tab) 650 mg PO Q4H PRN PRN Reason: Pain MILD(1-3)/Fever >100.5/CHOI Albuterol (Albuterol 8.5 Gm Mdi Inhalation) 2 puff IH Q4HRT PRN PRN Reason: Shortness Of Breath Aspirin (Aspirin 81 Mg Tab Chew) 81 mg PO QDAY MACIE Atorvastatin Calcium (Atorvastatin 20 Mg Tab) 20 mg PO QHS MACIE Bisacodyl (Bisacodyl 10 Mg Rect Supp) 10 mg AR QDAY PRN PRN Reason: Constipation unrelieved by MOM Carvedilol (Carvedilol 6.25 Mg Tab) 6.25 mg PO BID MACIE Docusate Sodium (Docusate Sodium 100 Mg Cap) 100 mg PO BID MACIE Enoxaparin Sodium (Enoxaparin 40 Mg/0.4 Ml Inj) 40 mg SUB-Q QDAY@2200 MACIE; Protocol Fluticasone Propionate (Fluticasone Propionate Nasal [place] 16 Gm) 50 mcg NS QDAY MACIE Furosemide (Furosemide 40 Mg/4 Ml Inj) 40 mg IV QDAY MACIE Hydralazine HCl (Hydralazine 20 Mg/1 Ml Inj) 10 mg IV Q4H PRN PRN Reason: Blood Pressure Last Admin: 10/12/20 03:47 Dose: 10 mg Documented by: Losartan Potassium (Losartan 50 Mg Tab) 50 mg PO QDAY MACIE Ondansetron HCl (Ondansetron 4 Mg/2 Ml Inj) 4 mg IV Q6H PRN PRN Reason: Nausea And Vomiting Oxycodone/Acetaminophen (Oxycodone /Acetaminophen 5-325mg Tab) 1 tab PO Q6H PRN PRN Reason: Pain, Moderate (4-6) Sodium Chloride (Sodium Chloride 0.9% 10 Ml Flush Syringe) 10 ml IV BID MACIE Sodium Chloride (Sodium Chloride 0.9% 10 Ml Flush Syringe) 10 ml IV PRN PRN PRN Reason: LINE FLUSH Physical Examination - Physical Exam Narrative exam: Physical exam deferred to minimize COVID-19 transmission during pandemic. ER and internal medicine physical examination notes reviewed. - Constitutional Vitals: Vital Signs Temp Pulse Resp BP Pulse Ox 97.6 F 73 17 153/109 99 10/12/20 03:30 10/12/20 06:23 10/12/20 03:30 10/12/20 06:19 10/12/20 03:30 Temperature -Last 24 Hours Temperature 97.6 F Temperature 98.4 F Temperature 97.6 F Temperature 97.6 F Results - Labs CBC & Chem 7: 10/12/20 04:57 10/12/20 04:57 Labs: Abnormal lab results 10/11/20 10/11/20 10/11/20 Range/Units 12:55 12:55 12:55 WBC 4.2 L (4.5-11.0) K/mm3 Hgb 10.1 L (11.8-15.2) gm/dl Hct 32.4 L (35.5-45.6) % MCV 74 L (84-94) fl MCH 23 L (28-32) pg MCHC 31 L (32-34) % RDW 18.8 H (13.2-15.2) % [place] % (Auto) 8.4 H (0.0-7.3) % Lymph # (Auto) 1.1 L (1.2-5.4) K/mm3 Seg Neutrophils % (40.0-70.0) % PT 16.0 H (12.2-14.9) Sec. INR 1.28 H (0.87-1.13) D-Dimer (0-234) ng/mlDDU BUN 22 H (9-20) mg/dL Glucose 101 H (75-100) mg/dL Hemoglobin A1c (4-6) % Calcium 10.6 H (8.4-10.2) mg/dL Total Bilirubin 1.50 H (0.1-1.2) mg/dL AST 60 H (5-40) units/L ALT 74 H (7-56) units/L Alkaline Phosphatase 134 H (35-129) units/L Lactate Dehydrogenase (91-180) units/L NT-Pro-B Natriuret Pep 2622 H (0-900) pg/mL Albumin 3.4 L (3.9-5) g/dL HDL Cholesterol (40-59) mg/dL 10/11/20 10/11/20 10/11/20 Range/Units 12:55 20:20 20:26 WBC (4.5-11.0) K/mm3 Hgb (11.8-15.2) gm/dl Hct (35.5-45.6) % MCV (84-94) fl MCH (28-32) pg MCHC (32-34) % RDW (13.2-15.2) % [place] % (Auto) (0.0-7.3) % Lymph # (Auto) (1.2-5.4) K/mm3 Seg Neutrophils % (40.0-70.0) % PT (12.2-14.9) Sec. INR (0.87-1.13) D-Dimer 391.27 H (0-234) ng/mlDDU BUN (9-20) mg/dL Glucose (75-100) mg/dL Hemoglobin A1c 6.7 H (4-6) % Calcium (8.4-10.2) mg/dL Total Bilirubin (0.1-1.2) mg/dL AST (5-40) units/L ALT (7-56) units/L Alkaline Phosphatase (35-129) units/L Lactate Dehydrogenase (91-180) units/L NT-Pro-B Natriuret Pep (0-900) pg/mL Albumin (3.9-5) g/dL HDL Cholesterol 35 L (40-59) mg/dL 10/11/20 10/12/20 10/12/20 Range/Units 20:26 04:57 04:57 WBC (4.5-11.0) K/mm3 Hgb 10.5 L (11.8-15.2) gm/dl Hct 33.4 L (35.5-45.6) % MCV 74 L (84-94) fl MCH 23 L (28-32) pg MCHC 31 L (32-34) % RDW 19.2 H (13.2-15.2) % [place] % (Auto) (0.0-7.3) % Lymph # (Auto) 0.9 L (1.2-5.4) K/mm3 Seg Neutrophils % 74.1 H (40.0-70.0) % PT (12.2-14.9) Sec. INR (0.87-1.13) D-Dimer (0-234) ng/mlDDU BUN 25 H (9-20) mg/dL Glucose (75-100) mg/dL Hemoglobin A1c (4-6) % Calcium 10.7 H (8.4-10.2) mg/dL Total Bilirubin (0.1-1.2) mg/dL AST (5-40) units/L ALT (7-56) units/L Alkaline Phosphatase (35-129) units/L Lactate Dehydrogenase 435 H (91-180) units/L NT-Pro-B Natriuret Pep (0-900) pg/mL Albumin (3.9-5) g/dL HDL Cholesterol (40-59) mg/dL Assessment and Plan Cultures: SARS CoV2 PCR pending Assessment: 56 years old male with history of hypertension, admitted on 10/11/2020 secondary to 4 weeks history of abdominal pain, 3 days history of chest pain and shortness of breath: #Severe sepsis : likely due to bilateral pneumonia. #Bilateral pneumonia versus volume overload: Chest x-ray with potential infiltrate bilaterally. CTA did not show any airspace disease or pulmonary embolism. D-dimer mildly elevated at 391. Unclear etiology should rule out COVID-19. #Acute hypoxemic respiratory failure: O2 sat down to 91%, patient currently on 4 L. Unclear etiology. #Elevated LFTs: Unclear etiology, possibly related to COVID-19. #MO: Unclear etiology, possibly related to COVID Recommendations: -Okay to start dexamethasone 6 mg IV/PO daily for now -Follow-up SARS-CoV-2 PCR if positive start Remdesivir for 5 days (CrCl>30 mg/mL) -Monitor inflammatory markers - ferritin, Ddimer, CRP, LDH -Continue anticoagulation per System Protocol -Obtain SARS CoV-2 IgG to determine length of infection -No indication for antibiotic given low procalcitonin All laboratory, cultures and imaging were reviewed. Will follow Raeann Garnett MD Infectious Diseases [facility] ([facility] M [phone] O [phone]
[2020-10-12] MEDS: DOCUSATE SODIUM 100 MG CAP PO SCH ×2 (10:41→22:34)
[2020-10-12] MEDS: ASPIRIN 81 MG TAB CHEW PO SCH (10:41)
[2020-10-12] MEDS: FUROSEMIDE 40 MG/4 ML INJ IV SCH (10:42)
[2020-10-12] MEDS: LOSARTAN 50 MG TAB PO SCH (10:55)
--- NOTE | 2020-10-12 11:22 | Consultation ---
History of Present Illness Consult date: 10/12/20 Requesting physician: IRVING ALFRED Consult reason: congestive heart failure History of present illness: The pt is a 55 YO male with a past medical history of hypertension. He is previously unknown to our practice. He presented with c/o abdominal pain for a month, chest pain and shortness of breath. Patient has been complaining of left upper quadrant abdominal pain for 4 weeks. Pain is constant without relieving factors. Patient also reported midsternal 6 of 10 chest pain associated with SOB and BENNETT. Chest x-ray shows bilateral interstitial infiltrates. CTA shows no airspace disease, no PE. Pt admitted as COVID-19 PUI. Past History Past Medical History: other (Obesity, hypertension) Past Surgical History: Other (Denies surgical history) Social history: (Not legally , not living together), Lives alone, full code. denies: smoking, alcohol abuse, prescription drug abuse, IV drug use Family history: hypertension Medications and Allergies Allergies Allergy/AdvReac Type Severity Reaction Status Date / Time No Known Allergies Allergy Unverified 07/28/19 13:46 Home Medications Medication Instructions Recorded Confirmed Last Taken Type Albuterol Sulfate [Proair 90 mcg IH Q4HR PRN #2 aer.pow.ba 07/28/19 Unknown Rx Respiclick] Fluticasone [Flonase] 1 spray NS QDAY #1 bottle 07/28/19 Unknown Rx Ibuprofen [Motrin] 600 mg PO Q8H PRN #30 tablet 07/28/19 Unknown Rx Multivitamin with Folic Acid [Cvs 400 mcg PO QDAY #30 tablet 07/28/19 Unknown Rx One Daily Essential Tablet] Active Meds: Active Medications Acetaminophen (Acetaminophen 325 Mg Tab) 650 mg PO Q4H PRN PRN Reason: Pain MILD(1-3)/Fever >100.5/CHOI Albuterol (Albuterol 8.5 Gm Mdi Inhalation) 2 puff IH Q4HRT PRN PRN Reason: Shortness Of Breath Aspirin (Aspirin 81 Mg Tab Chew) 81 mg PO QDAY MACIE Last Admin: 10/12/20 10:41 Dose: 81 mg Documented by: Atorvastatin Calcium (Atorvastatin 20 Mg Tab) 20 mg PO QHS MACIE Bisacodyl (Bisacodyl 10 Mg Rect Supp) 10 mg [place] QDAY PRN PRN Reason: Constipation unrelieved by MOM Carvedilol (Carvedilol 6.25 Mg Tab) 6.25 mg PO BID [facility] Last Admin: 10/12/20 10:55 Dose: 6.25 mg Documented by: Docusate Sodium (Docusate Sodium 100 Mg Cap) 100 mg PO BID [facility] Last Admin: 10/12/20 10:41 Dose: 100 mg Documented by: Enoxaparin Sodium (Enoxaparin 40 Mg/0.4 Ml Inj) 40 mg SUB-Q QDAY@2200 [facility]; Protocol Fluticasone Propionate (Fluticasone Propionate Nasal [place] 16 Gm) 50 mcg NS QDAY [facility] Furosemide (Furosemide 40 Mg/4 Ml Inj) 40 mg IV QDAY [facility] Last Admin: 10/12/20 10:42 Dose: 40 mg Documented by: Hydralazine HCl (Hydralazine 20 Mg/1 Ml Inj) 10 mg IV Q4H PRN PRN Reason: Blood Pressure Last Admin: 10/12/20 03:47 Dose: 10 mg Documented by: Losartan Potassium (Losartan 50 Mg Tab) 50 mg PO QDAY [facility] Last Admin: 10/12/20 10:55 Dose: 50 mg Documented by: Ondansetron HCl (Ondansetron 4 Mg/2 Ml Inj) 4 mg IV Q6H PRN PRN Reason: Nausea And Vomiting Oxycodone/Acetaminophen (Oxycodone /Acetaminophen 5-325mg Tab) 1 tab PO Q6H PRN PRN Reason: Pain, Moderate (4-6) Sodium Chloride (Sodium Chloride 0.9% 10 Ml Flush Syringe) 10 ml IV BID [facility] Last Admin: 10/12/20 10:42 Dose: 10 ml Documented by: Sodium Chloride (Sodium Chloride 0.9% 10 Ml Flush Syringe) 10 ml IV PRN PRN PRN Reason: LINE FLUSH Review of Systems All systems: negative (as per HPI) Physical Examination Vital Signs Temp Pulse Resp BP Pulse Ox 97.6 F 104 H 20 192/136 91 10/11/20 11:45 10/11/20 11:45 10/11/20 11:45 10/11/20 11:45 10/11/20 11:45 Narrative exam: agree with physical examination per primary team Results 10/12/20 04:57 10/12/20 04:57 Cardiac Enzymes 10/11/20 10/11/20 Range/Units 12:55 20:26 AST 60 H (5-40) units/L Lactate Dehydrogenase 435 H (91-180) units/L Coagulation 10/11/20 Range/Units 12:55 PT 16.0 H (12.2-14.9) Sec. INR 1.28 H (0.87-1.13) APTT 33.5 (24.2-36.6) Sec. Lipids 10/11/20 Range/Units 20:20 Triglycerides 74 (2-149) mg/dL Cholesterol 145 (50-199) mg/dL HDL Cholesterol 35 L (40-59) mg/dL Cholesterol/HDL Ratio 4.14 % CBC 10/11/20 10/12/20 Range/Units 12:55 04:57 WBC 4.2 L 5.1 (4.5-11.0) K/mm3 RBC 4.38 4.52 (3.65-5.03) M/mm3 Hgb 10.1 L 10.5 L (11.8-15.2) gm/dl Hct 32.4 L 33.4 L (35.5-45.6) % Plt Count 291 318 (140-440) K/mm3 Lymph # (Auto) 1.1 L 0.9 L (1.2-5.4) K/mm3 [place] # (Auto) 0.3 0.3 (0.0-0.8) K/mm3 Eos # (Auto) 0.1 0.1 (0.0-0.4) K/mm3 Baso # (Auto) 0.0 0.0 (0.0-0.1) K/mm3 Comprehensive Metabolic Panel 10/11/20 10/12/20 Range/Units 12:55 04:57 Sodium 141 138 (137-145) mmol/L Potassium 4.6 4.4 (3.6-5.0) mmol/L Chloride 106.9 104.2 (98-107) mmol/L Carbon Dioxide 27 23 (22-30) mmol/L BUN 22 H 25 H (9-20) mg/dL Creatinine 1.2 1.2 (0.8-1.3) mg/dL Glucose 101 H 98 (75-100) mg/dL Calcium 10.6 H 10.7 H (8.4-10.2) mg/dL AST 60 H (5-40) units/L ALT 74 H (7-56) units/L Alkaline Phosphatase 134 H (35-129) units/L Total Protein 6.7 (6.3-8.2) g/dL Albumin 3.4 L (3.9-5) g/dL - Imaging and Cardiology EKG: report reviewed, image reviewed EKG interpretations - Telemetry EKG Rhythm: Sinus Rhythm - EKG Sinus rhythms and dysrhythmias: sinus rhythm Chamber hypertrophy or enlargement: left ventricular hypertro Assessment and Plan Agree with present cardiac management. F/u CMP in AM. COVID-19 testing is pending - plan to obtain tte pending test results. Will follow. The patient has been seen in conjunction with Dr. Gracy Bond who agrees with the assessment and plan of care. - Patient Problems (1) Suspected 2019 novel coronavirus infection Current Visit: Yes Status: Acute (2) Hypertensive urgency Current Visit: Yes Status: Acute (3) Acute heart failure Current Visit: Yes Status: Acute (4) Elevated LFTs Current Visit: Yes Status: Acute (5) Anemia Current Visit: Yes Status: Acute
[2020-10-12] MEDS ORDERED: carvediloL 6.25 MG TAB PO NR (12:00)
[2020-10-12] MEDS: FLUTICASONE PROPIONATE NASAL SPRAY 16 GM NS SCH (12:41)
--- NOTE | 2020-10-12 14:08 | Progress Note ---
Assessment and Plan Assessment and plan: COVID-19 PUI -10/11 CXR shows bilateral interstitial infiltrates. -Patient states on 10/08 he tested negative for COVID-19 -10/12 COVID-19 PCR pending -Infectious disease consulted, appreciate recommendations -Contact/droplet isolation -OOB 3 times daily and as needed -Supplemental oxygenation as needed -Pulmonary hygiene -Trend inflammatory markers for a stratification -Anticoagulation per protocol Acute CHF -10/11 proBNP 2622 -Cardiology consulted, appreciate recommendations -Troponins: 0.025, 0.027, 0.028 -BB, ACEi, Diuretic, ARB, ASA -10/12 echocardiogram pending -Strict intake and output -Daily weights -Troponin elevated x3 Elevated D-dimer -10/11 D-dimer 391.27 -CT chest negative for PE Hypercalcemia -Presents with a calcium 10.6 -Trend calcium -We will try to hold off on IV fluids in setting of possible COVID-19 infection Transaminitis -Presented with T bili 1.5, AST 60, ALT 74, alk phos 134 -Patient denies excessive alcohol use but is obese -Likely secondary to COVID-19 infection or possibly ABRAMS -10/12 Hepatitis panel negative Hypertensive urgency -Presented with BP of 192/136 -S/p labetalol 20 mg IV, metoprolol 5 mg IV, amlodipine 10 mg p.o. -BB, ACEi, ARB, diuretic -BP monitoring per protocol -Hydralazine as needed for SBP greater than 160 Acute hypoxic respiratory failure -Currently on 4 L supplemental oxygen with saturation of 94 to 96% -Supplemental oxygen as needed -Pulmonary hygiene -SPO2 monitoring Anemia -Stable at 10.1 -No S/S of active bleeding -Monitor -Transfuse as needed DVT PPX -On Lovenox -GI prophylaxis -SCDs to bilateral lower extremity while in bed History Interval history: This is a 55-year-old male with hypertension who was admitted on 10/11 secondary to complaints of left upper quadrant abdominal pain for 4 weeks, midsternal 6/10 chest pain and shortness of breath and dyspnea on exertion. Recommend emergency department included a CXR which showed bilateral interstitial infiltrates, elevated D-dimer, elevated proBNP and physical exam consistent with acute CHF exacerbation. Patient was admitted to the hospital service as a COVID-19 PUI. Infectious disease and cardiology were consulted. At the time my exam patient remains on supplemental oxygenation, states that he has BENNETT and a slight cough. No acute events reported overnight. Hospitalist Physical - Constitutional Vitals: Temp Pulse Resp BP Pulse Ox 97.6 F 74 20 183/118 99 10/12/20 10:47 10/12/20 10:47 10/12/20 10:47 10/12/20 12:43 10/12/20 10:47 General appearance: Present: no acute distress, obese - EENT Eyes: Present: PERRL, EOM intact ENT: hearing intact, poor dentition - Neck Neck: Present: normal ROM - Respiratory Respiratory effort: normal - Cardiovascular Rhythm: regular - Extremities Extremities: no ischemia, pulses intact, pulses symmetrical, normal temperature, normal color, Full ROM Extremity abnormal: edema - Peripheral Assessment Bilateral Lower Extremity Edema Type: Pitting Edema Degree: 2+ Capillary Refill: < 3 seconds Skin Temperature: Warm Peripheral Pulses: within normal limits - Abdominal General gastrointestinal: soft, non-tender, non-distended, normal bowel sounds - Integumentary Integumentary: Present: clear, warm, dry - Psychiatric Psychiatric: appropriate mood/affect, cooperative - Neurologic Neurologic: CNII-XII intact, no focal deficits, moves all extremities - Allied Health Allied health notes reviewed: nursing, PT HEART Score - HEART Score EKG: Normal Age: 45-65 Risk factors: No known risk factors Troponin: Troponin T 0.028 ng/mL (0.00-0.029) 10/11/20 20:31 Troponin: 1-3x normal limit - Critical Actions Critical Actions: 0-3 pts:0.9-1.7%risk of adverse cardiac event.Candidate for discharge Results - Labs CBC & Chem 7: 10/12/20 04:57 10/12/20 04:57 Labs: Laboratory Last Values WBC 5.1 K/mm3 (4.5-11.0) 10/12/20 04:57 RBC 4.52 M/mm3 (3.65-5.03) 10/12/20 04:57 Hgb 10.5 gm/dl (11.8-15.2) L 10/12/20 04:57 Hct 33.4 % (35.5-45.6) L 10/12/20 04:57 MCV 74 fl (84-94) L 10/12/20 04:57 MCH 23 pg (28-32) L 10/12/20 04:57 MCHC 31 % (32-34) L 10/12/20 04:57 RDW 19.2 % (13.2-15.2) H 10/12/20 04:57 Plt Count 318 K/mm3 (140-440) 10/12/20 04:57 Lymph % (Auto) 17.0 % (13.4-35.0) 10/12/20 04:57 [place] % (Auto) 6.7 % (0.0-7.3) 10/12/20 04:57 Eos % (Auto) 1.2 % (0.0-4.3) 10/12/20 04:57 Baso % (Auto) 1.0 % (0.0-1.8) 10/12/20 04:57 Lymph # (Auto) 0.9 K/mm3 (1.2-5.4) L 10/12/20 04:57 [place] # (Auto) 0.3 K/mm3 (0.0-0.8) 10/12/20 04:57 Eos # (Auto) 0.1 K/mm3 (0.0-0.4) 10/12/20 04:57 Baso # (Auto) 0.0 K/mm3 (0.0-0.1) 10/12/20 04:57 Seg Neutrophils % 74.1 % (40.0-70.0) H 10/12/20 04:57 Seg Neutrophils # 3.8 K/mm3 (1.8-7.7) 10/12/20 04:57 PT 16.0 Sec. (12.2-14.9) H 10/11/20 12:55 INR 1.28 (0.87-1.13) H 10/11/20 12:55 APTT 33.5 Sec. (24.2-36.6) 10/11/20 12:55 D-Dimer 391.27 ng/mlDDU (0-234) H 10/11/20 20:26 Sodium 138 mmol/L (137-145) 10/12/20 04:57 Potassium 4.4 mmol/L (3.6-5.0) 10/12/20 04:57 Chloride 104.2 mmol/L (98-107) 10/12/20 04:57 Carbon Dioxide 23 mmol/L (22-30) 10/12/20 04:57 Anion Gap 15 mmol/L 10/12/20 04:57 BUN 25 mg/dL (9-20) H 10/12/20 04:57 Creatinine 1.2 mg/dL (0.8-1.3) 10/12/20 04:57 Estimated GFR > 60 ml/min 10/12/20 04:57 BUN/Creatinine Ratio 21 % 10/12/20 04:57 Glucose 98 mg/dL (75-100) 10/12/20 04:57 Hemoglobin A1c 6.7 % (4-6) H 10/11/20 12:55 Calcium 10.7 mg/dL (8.4-10.2) H 10/12/20 04:57 Ferritin 32.6 ng/mL (30.0-300.0) 10/11/20 20:26 Total Bilirubin 1.50 mg/dL (0.1-1.2) H 10/11/20 12:55 AST 60 units/L (5-40) H 10/11/20 12:55 ALT 74 units/L (7-56) H 10/11/20 12:55 Alkaline Phosphatase 134 units/L (35-129) H 10/11/20 12:55 Lactate Dehydrogenase 435 units/L (91-180) H 10/11/20 20:26 Troponin T 0.028 ng/mL (0.00-0.029) 10/11/20 20:31 C-Reactive Protein 0.60 mg/dL (0.00-1.30) 10/11/20 20:26 NT-Pro-B Natriuret Pep 2622 pg/mL (0-900) H 10/11/20 12:55 Total Protein 6.7 g/dL (6.3-8.2) 10/11/20 12:55 Albumin 3.4 g/dL (3.9-5) L 10/11/20 12:55 Albumin/Globulin Ratio 1.0 % 10/11/20 12:55 Triglycerides 74 mg/dL (2-149) 10/11/20 20:20 Cholesterol 145 mg/dL (50-199) 10/11/20 20:20 LDL Cholesterol Direct 105 mg/dL (50-130) 10/11/20 20:20 HDL Cholesterol 35 mg/dL (40-59) L 10/11/20 20:20 Cholesterol/HDL Ratio 4.14 % 10/11/20 20:20 Procalcitonin 0.05 ng/mL (<0.15) 10/11/20 20:26 Urine Opiates Screen Presumptive negative 10/12/20 03:01 Urine Methadone Screen Presumptive negative 10/12/20 03:01 Ur Barbiturates Screen Presumptive negative 10/12/20 03:01 Ur Phencyclidine Scrn Presumptive negative 10/12/20 03:01 Ur Amphetamines Screen Presumptive negative 10/12/20 03:01 U Benzodiazepines Scrn Presumptive negative 10/12/20 03:01 Urine Cocaine Screen Presumptive negative 10/12/20 03:01 U Marijuana (THC) Screen Presumptive negative 10/12/20 03:01 Drugs of Abuse Note Disclamer 10/12/20 03:01 Hepatitis A IgM Ab Non-reactive (NonReactive) 10/11/20 20:20 Hep Bs Antigen Non-reactive (Negative) 10/11/20 20:20 Hep B Core IgM Ab Non-reactive (NonReactive) 10/11/20 20:20 Hepatitis C Antibody Non-reactive (NonReactive) 10/11/20 20:20 Alvarez/IV: Voiding Method Toilet IV Catheter Type [Left Peripheral IV Antecubital] IV Catheter Type [Right Peripheral IV Forearm] Active Medications - Current Medications Current Medications: Generic Name Dose Route Start Last Admin Trade Name Freq PRN Reason Stop Dose Admin Acetaminophen 650 mg 10/11/20 23:37 Acetaminophen 325 Mg Tab PO Q4H PRN Pain MILD(1-3)/Fever >100.5/CHOI Albuterol 2 puff 10/11/20 23:51 Albuterol 8.5 Gm Mdi Inhalation IH Q4HRT PRN Shortness Of Breath Aspirin 81 mg 10/12/20 10:00 10/12/20 10:41 Aspirin 81 Mg Tab Chew PO 81 mg QDAY MACIE Administration Atorvastatin Calcium 20 mg 10/12/20 22:00 Atorvastatin 20 Mg Tab PO QHS MACIE Bisacodyl 10 mg 10/11/20 23:37 Bisacodyl 10 Mg Rect Supp CA QDAY PRN Constipation unrelieved by MOM Carvedilol 12.5 mg 10/12/20 22:00 Carvedilol 12.5 Mg Tab PO BID MACIE Docusate Sodium 100 mg 10/12/20 10:00 10/12/20 10:41 Docusate Sodium 100 Mg Cap PO 100 mg BID MACIE Administration Enoxaparin Sodium 40 mg 10/12/20 22:00 Enoxaparin 40 Mg/0.4 Ml Inj SUB-Q QDAY@2200 [facility] Protocol Fluticasone Propionate 50 mcg 10/12/20 10:00 10/12/20 12:41 Fluticasone Propionate Nasal [place] 16 Gm NS 50 mcg QDAY MACIE Administration Furosemide 40 mg 10/12/20 10:00 10/12/20 10:42 Furosemide 40 Mg/4 Ml Inj IV 40 mg QDAY MACIE Administration Hydralazine HCl 10 mg 10/12/20 03:39 10/12/20 12:43 Hydralazine 20 Mg/1 Ml Inj IV 10 mg Q4H PRN Administration Blood Pressure Losartan Potassium 50 mg 10/12/20 10:00 10/12/20 10:55 Losartan 50 Mg Tab PO 50 mg QDAY MACIE Administration Ondansetron HCl 4 mg 10/11/20 23:37 Ondansetron 4 Mg/2 Ml Inj IV Q6H PRN Nausea And Vomiting Oxycodone/Acetaminophen 1 tab 10/11/20 23:37 Oxycodone /Acetaminophen 5-325mg Tab PO Q6H PRN Pain, Moderate (4-6) Sodium Chloride 10 ml 10/12/20 10:00 10/12/20 10:42 Sodium Chloride 0.9% 10 Ml Flush Syringe IV 10 ml BID MACIE Administration Sodium Chloride 10 ml 10/11/20 23:37 Sodium Chloride 0.9% 10 Ml Flush Syringe IV PRN PRN LINE FLUSH
[2020-10-12] MEDS ORDERED: DEXAMETHASONE 4 MG TAB PO SCH (15:00)
[2020-10-12] MEDS: amLODIPine 10 MG TAB PO SCH (16:33)
[2020-10-12] MEDS: carvediloL 12.5 MG TAB PO SCH (22:34)
[2020-10-12] MEDS: ENOXAPARIN 40 MG/0.4 ML INJ SUB-Q SCH (22:34)
[2020-10-13 06:55] LABS: Alanine Aminotransferase 74 units/L (7-56); Albumin 3.3 g/dL (3.9-5); BUN/Creatinine Ratio 25; Blood Urea Nitrogen 28 mg/dL (9-20); Calcium 10.2 mg/dL (8.4-10.2); Hemolysis Index 0
[2020-10-13] MEDS: LOSARTAN 50 MG TAB PO SCH (10:37)
[2020-10-13] MEDS: ASPIRIN 81 MG TAB CHEW PO SCH (10:38)
[2020-10-13] MEDS: amLODIPine 10 MG TAB PO SCH (10:38)
[2020-10-13] MEDS: DOCUSATE SODIUM 100 MG CAP PO SCH ×2 (10:38→23:03)
[2020-10-13] MEDS: carvediloL 12.5 MG TAB PO SCH ×2 (10:38→23:03)
[2020-10-13] MEDS: FLUTICASONE PROPIONATE NASAL SPRAY 16 GM NS SCH (10:39)
[2020-10-13] MEDS: FUROSEMIDE 40 MG/4 ML INJ IV SCH (10:39)
[2020-10-13] MEDS ORDERED: SODIUM CHLORIDE 0.9% 500 ML 500 ML IV SCH (11:00)
--- NOTE | 2020-10-13 11:04 | Progress Note ---
Assessment and Plan COVID-19 testing is negative. tte reviewed - EF 20-25%, mild LVH, LA mildly dilated, RV mod dilated, mild MR. Cont present cardiac management, including IV lasix BID, coreg, losartan. Coronary angiography recommended in setting of newly diagnosed CMP. Indications, potential risks and benefits of LHC reviewed with pt and he is agreeable to proceed with LHC in AM. NPO after MN. The patient has been seen in conjunction with Dr. Gracy Bond who agrees with the assessment and plan of care. - Patient Problems (1) Acute HFrEF (heart failure with reduced ejection fraction) Current Visit: Yes Status: Acute (2) Cardiomyopathy Current Visit: Yes Status: Acute (3) Hypertensive urgency Current Visit: Yes Status: Acute (4) Elevated LFTs Current Visit: Yes Status: Acute (5) Anemia Current Visit: Yes Status: Acute Subjective Date of service: 10/13/20 Principal diagnosis: HF Interval history: pt resting in bed, states SOB and swelling is improving. tele reviewed - in SR HR 70s. Objective Last Vital Signs Temp 98.0 F 10/13/20 04:27 Pulse 66 10/13/20 10:38 Resp 18 10/13/20 04:27 BP 142/100 10/13/20 10:38 Pulse Ox 99 10/13/20 04:27 - Physical Examination General: No Apparent Distress, Other (obese) HEENT: Positive: PERRL, Normocephaly, Mucus Membranes Moist Neck: Positive: neck supple, trachea midline Cardiac: Positive: Reg Rate and Rhythm, S1/S2 Lungs: Positive: Decreased Breath Sounds Neuro: Positive: Grossly Intact Abdomen: Negative: Tender Skin: Negative: Rash Musculoskeletal: No Pain Extremities: Present: +1 Edema (BLE) - Labs and Meds Cardiac Enzymes 10/13/20 Range/Units 05:50 AST 54 H (5-40) units/L Lactate Dehydrogenase 378 H (91-180) units/L Comprehensive Metabolic Panel 10/13/20 Range/Units 05:50 Sodium 137 (137-145) mmol/L Potassium 4.4 (3.6-5.0) mmol/L Chloride 102.4 (98-107) mmol/L Carbon Dioxide 26 (22-30) mmol/L BUN 28 H (9-20) mg/dL Creatinine 1.1 (0.8-1.3) mg/dL Glucose 140 H (75-100) mg/dL Calcium 10.2 (8.4-10.2) mg/dL AST 54 H (5-40) units/L ALT 74 H (7-56) units/L Alkaline Phosphatase 129 (35-129) units/L Total Protein 6.6 (6.3-8.2) g/dL Albumin 3.3 L (3.9-5) g/dL - Imaging and Cardiology EKG: report reviewed, image reviewed Echo: report reviewed - Telemetry EKG Rhythm: Sinus Rhythm - EKG Sinus rhythms and dysrhythmias: sinus rhythm Chamber hypertrophy or enlargement: left ventricular hypertro
--- NOTE | 2020-10-13 11:39 | Progress Note ---
Assessment and Plan Cultures: SARS CoV2 PCR neg Assessment: 56 years old male with history of hypertension, admitted on 10/11/2020 secondary to 4 weeks history of abdominal pain, 3 days history of chest pain and shortness of breath: #Bilateral pneumonia versus volume overload: Chest x-ray with potential infiltrate bilaterally. Procal is low, doubt bacterial pneumonia. CTA did not show any airspace disease or pulmonary embolism. D-dimer mildly elevated at 391. SARS PCR neg. #Acute hypoxemic respiratory failure: O2 sat down to 91%, patient currently on 2 L. Likely due to volume overload. #Elevated LFTs: Unclear etiology, improving #MO: Unclear etiology, better Recommendations: -Stop steroids -CHF per cards -No indication for antibiotic given low procalcitonin All laboratory, cultures and imaging were reviewed. Will sign off Raeann Garnett MD [facility] Managing Director [facility] ([facility]) M [phone] O [phone] Subjective Date of service: 10/13/20 Principal diagnosis: HF Objective - Constitutional Vitals: Vital Signs Temp Pulse Resp BP Pulse Ox 98.0 F 66 20 142/100 98 10/13/20 04:27 10/13/20 10:38 10/13/20 10:00 10/13/20 10:38 10/13/20 10:00 Temperature -Last 24 Hours Temperature 98.0 F Temperature 97.6 F Temperature 98.2 F Temperature 97.5 F - Labs CBC & Chem 7: 10/12/20 04:57 10/13/20 05:50 Labs: Abnormal lab results 10/13/20 10/13/20 Range/Units 05:50 05:50 D-Dimer 277.46 H (0-234) ng/mlDDU BUN 28 H (9-20) mg/dL Glucose 140 H (75-100) mg/dL Total Bilirubin 1.30 H (0.1-1.2) mg/dL AST 54 H (5-40) units/L ALT 74 H (7-56) units/L Lactate Dehydrogenase 378 H (91-180) units/L Albumin 3.3 L (3.9-5) g/dL
--- NOTE | 2020-10-13 18:18 | Progress Note ---
Assessment and Plan Assessment and plan: Acute Systolic heart failure -10/11 proBNP 2622 -Cardiology consulted, appreciate recommendations -Troponins: 0.025, 0.027, 0.028 -BB, ACEi, Diuretic, ARB, ASA -Strict intake and output -Daily weights -Heart failure education -10/11 TTE shows mild concentric left ventricular hypertrophy, severe global hyp okinesis of the left ventricle, global left ventricular systolic function is severely decreased with estimated ejection fraction of 20 to 25%, low ventricular diastolic filling pattern is restrictive, mildly dilated LA, moderately dilated RV V, mild MR with no pericardial effusion -Cardiology plans to perform left heart catheterization for further evaluation tomorrow Elevated D-dimer -10/11 D-dimer 391.27 -CT chest negative for PE Hypercalcemia -Presents with a calcium 10.6 -Trend calcium -10/13 calcium 10.2 Transaminitis -Presented with T bili 1.5, AST 60, ALT 74, alk phos 134 -Patient denies excessive alcohol use but is obese -10/12 hepatitis panel reactive for hepatitis C -Trend LFTs Hypertensive urgency -Presented with BP of 192/136 -S/p labetalol 20 mg IV, metoprolol 5 mg IV, amlodipine 10 mg p.o. -BB, ACEi, ARB, diuretic -BP monitoring per protocol -Hydralazine as needed for SBP greater than 160 Acute hypoxic respiratory failure -Currently on 4 L supplemental oxygen with saturation of 94 to 96% -Supplemental oxygen as needed -Pulmonary hygiene -SPO2 monitoring Anemia -Stable at 10.1 -No S/S of active bleeding -Monitor -Transfuse as needed DVT PPX -On Lovenox -GI prophylaxis -SCDs to bilateral lower extremity while in bed COVID-19 PUI, ruled out -10/11 CXR shows bilateral interstitial infiltrates. -Patient states on 10/08 he tested negative for COVID-19 -10/12 COVID-19 PCR negative History Interval history: This is a 55-year-old male with hypertension and history of hepatitis C who was admitted on 10/11 secondary to complaints of left upper quadrant abdominal pain for 4 weeks, midsternal 6/10 chest pain and shortness of breath and dyspnea on exertion. Recommend emergency department included a CXR which showed bilateral interstitial infiltrates, elevated D-dimer, elevated proBNP and physical exam consistent with acute CHF exacerbation. Patient was admitted to the hospital service as a COVID-19 PUI. Infectious disease and cardiology were consulted. At the time of my exam patient states that he feels much better. No acute events reported overnight. Cardiology plans to perform a left heart cath in the a.m. Patient will be n.p.o. after midnight. 10/13: At the time my exam patient remains on supplemental oxygenation, states that he has BENNETT and a slight cough. No acute events reported overnight. COVID- 19 PCR negative and transferred to telemetry Hospitalist Physical - Constitutional Vitals: Temp Pulse Resp BP Pulse Ox 97.9 F 89 22 132/87 2 L 10/13/20 12:00 10/13/20 12:00 10/13/20 12:00 10/13/20 12:00 10/13/20 12:00 General appearance: Present: no acute distress, obese - EENT Eyes: Present: PERRL, EOM intact ENT: hearing intact, clear oral mucosa, poor dentition - Neck Neck: Present: normal ROM - Respiratory Respiratory effort: normal Respiratory: bilateral: CTA - Cardiovascular Rhythm: regular Heart Sounds: Present: S1 & S2. Absent: systolic murmur, diastolic murmur - Extremities Extremities: no ischemia, pulses intact, pulses symmetrical, No edema, normal temperature, normal color, Full ROM Peripheral Pulses: within normal limits - Abdominal General gastrointestinal: soft, non-tender, non-distended, normal bowel sounds - Integumentary Integumentary: Present: clear, warm, dry - Psychiatric Psychiatric: cooperative - Neurologic Neurologic: CNII-XII intact, no focal deficits, moves all extremities - Allied Health Allied health notes reviewed: nursing HEART Score - HEART Score EKG: Normal Age: 45-65 Risk factors: No known risk factors Troponin: Troponin T 0.028 ng/mL (0.00-0.029) 10/11/20 20:31 Troponin: 1-3x normal limit - Critical Actions Critical Actions: 0-3 pts:0.9-1.7%risk of adverse cardiac event.Candidate for discharge Results - Labs CBC & Chem 7: 10/12/20 04:57 10/13/20 05:50 Labs: Laboratory Last Values WBC 5.1 K/mm3 (4.5-11.0) 10/12/20 04:57 RBC 4.52 M/mm3 (3.65-5.03) 10/12/20 04:57 Hgb 10.5 gm/dl (11.8-15.2) L 10/12/20 04:57 Hct 33.4 % (35.5-45.6) L 10/12/20 04:57 MCV 74 fl (84-94) L 10/12/20 04:57 MCH 23 pg (28-32) L 10/12/20 04:57 MCHC 31 % (32-34) L 10/12/20 04:57 RDW 19.2 % (13.2-15.2) H 10/12/20 04:57 Plt Count 318 K/mm3 (140-440) 10/12/20 04:57 Lymph % (Auto) 17.0 % (13.4-35.0) 10/12/20 04:57 Morris % (Auto) 6.7 % (0.0-7.3) 10/12/20 04:57 Eos % (Auto) 1.2 % (0.0-4.3) 10/12/20 04:57 Baso % (Auto) 1.0 % (0.0-1.8) 10/12/20 04:57 Lymph # (Auto) 0.9 K/mm3 (1.2-5.4) L 10/12/20 04:57 [place] # (Auto) 0.3 K/mm3 (0.0-0.8) 10/12/20 04:57 Eos # (Auto) 0.1 K/mm3 (0.0-0.4) 10/12/20 04:57 Baso # (Auto) 0.0 K/mm3 (0.0-0.1) 10/12/20 04:57 Seg Neutrophils % 74.1 % (40.0-70.0) H 10/12/20 04:57 Seg Neutrophils # 3.8 K/mm3 (1.8-7.7) 10/12/20 04:57 PT 16.0 Sec. (12.2-14.9) H 10/11/20 12:55 INR 1.28 (0.87-1.13) H 10/11/20 12:55 APTT 33.5 Sec. (24.2-36.6) 10/11/20 12:55 D-Dimer 277.46 ng/mlDDU (0-234) H 10/13/20 05:50 Sodium 137 mmol/L (137-145) 10/13/20 05:50 Potassium 4.4 mmol/L (3.6-5.0) 10/13/20 05:50 Chloride 102.4 mmol/L (98-107) 10/13/20 05:50 Carbon Dioxide 26 mmol/L (22-30) 10/13/20 05:50 Anion Gap 13 mmol/L 10/13/20 05:50 BUN 28 mg/dL (9-20) H 10/13/20 05:50 Creatinine 1.1 mg/dL (0.8-1.3) 10/13/20 05:50 Estimated GFR > 60 ml/min 10/13/20 05:50 BUN/Creatinine Ratio 25 % 10/13/20 05:50 Glucose 140 mg/dL (75-100) H 10/13/20 05:50 Hemoglobin A1c 6.7 % (4-6) H 10/11/20 12:55 Calcium 10.2 mg/dL (8.4-10.2) 10/13/20 05:50 Ferritin 32.1 ng/mL (30.0-300.0) 10/13/20 05:50 Total Bilirubin 1.30 mg/dL (0.1-1.2) H 10/13/20 05:50 AST 54 units/L (5-40) H 10/13/20 05:50 ALT 74 units/L (7-56) H 10/13/20 05:50 Alkaline Phosphatase 129 units/L (35-129) 10/13/20 05:50 Lactate Dehydrogenase 378 units/L (91-180) H 10/13/20 05:50 Troponin T 0.028 ng/mL (0.00-0.029) 10/11/20 20:31 C-Reactive Protein 0.60 mg/dL (0.00-1.30) 10/13/20 05:50 NT-Pro-B Natriuret Pep 2622 pg/mL (0-900) H 10/11/20 12:55 Total Protein 6.6 g/dL (6.3-8.2) 10/13/20 05:50 Albumin 3.3 g/dL (3.9-5) L 10/13/20 05:50 Albumin/Globulin Ratio 1.0 % 10/13/20 05:50 Triglycerides 74 mg/dL (2-149) 10/11/20 20:20 Cholesterol 145 mg/dL (50-199) 10/11/20 20:20 LDL Cholesterol Direct 105 mg/dL (50-130) 10/11/20 20:20 HDL Cholesterol 35 mg/dL (40-59) L 10/11/20 20:20 Cholesterol/HDL Ratio 4.14 % 10/11/20 20:20 Procalcitonin 0.05 ng/mL (<0.15) 10/11/20 20:26 Urine Opiates Screen Presumptive negative 10/12/20 03:01 Urine Methadone Screen Presumptive negative 10/12/20 03:01 Ur Barbiturates Screen Presumptive negative 10/12/20 03:01 Ur Phencyclidine Scrn Presumptive negative 10/12/20 03:01 Ur Amphetamines Screen Presumptive negative 10/12/20 03:01 U Benzodiazepines Scrn Presumptive negative 10/12/20 03:01 Urine Cocaine Screen Presumptive negative 10/12/20 03:01 U Marijuana (THC) Screen Presumptive negative 10/12/20 03:01 Drugs of Abuse Note Disclamer 10/12/20 03:01 Coronavirus (PCR) Negative (Negative) 10/12/20 Unknown Hepatitis A IgM Ab Non-reactive (NonReactive) 10/11/20 20:20 Hep Bs Antigen Non-reactive (Negative) 10/11/20 20:20 Hep B Core IgM Ab Non-reactive (NonReactive) 10/11/20 20:20 Hepatitis C Antibody Non-reactive (NonReactive) 10/11/20 20:20 - Diagnostic Impressions Diagnostic Impressions: Echocardiogram 10/11/20 23:39 Transthoracic Echocardiogram Indication: Elevated Trop BP: 153/109 HR: 58 Conclusions *Mild concentric left ventricular hypertrophy is observed. *Severe global hypokinesis of the left ventricle is observed. *Global left ventricular systolic function is severely decreased. *The estimated ejection fraction is 20-25%. *The left ventricular diastolic filling pattern is restrictive. *The left atrium is mildly dilated. *The right ventricle is moderately dilated. *There is mild mitral regurgitation. *There is no pericardial effusion. Findings Left Ventricle: The left ventricular chamber size is severely dilated. Mild concentric left ventricular hypertrophy is observed. Severe global hypokinesis of the left ventricle is observed. Global left ventricular systolic function is severely decreased. The estimated ejection fraction is 20-25%. The left ventricular diastolic filling pattern is restrictive. Left Atrium: The left atrium is mildly dilated. Right Ventricle: The right ventricle is moderately dilated. Right Atrium: The right atrium is mild to moderately dilated. Aortic Valve: The aortic valve leaflets are mildly thickened. There is trace of aortic regurgitation. Mitral Valve: The mitral valve leaflets are mildly thickened. There is mild mitral regurgitation. Tricuspid Valve: The right ventricular systolic pressure is calculated at 37 mmHg. There is evidence of mild pulmonary hypertension. Pulmonic Valve: The pulmonic valve appears normal. There is trace pulmonic regurgitation. Pericardium: There is no pericardial effusion. Aorta: The aorta appears normal. Venous: The inferior vena cava is dilated. There is less than 50% respiratory change in the inferior vena cava dimension. Measurements Chambers 2D Name Value Normal Range IVSd (2D) 1.29 cm (0.6 - 1.1) LVPWd (2D) 1.22 cm (0.6 - 1.1) LVIDd (2D) 6.49 cm (3.7 - 5.6) LVIDs (2D) 5.85 cm (2 - 3.8) LV FS (2D) 9.77 % - EF Teichholz (2D) 20.89 % - Ao root diameter (2D) 3.94 cm (2 - 3.7) Volumes/Mass Name Value Normal Range LA ESV SP 4CH (A/L) 102.35 ml - LA ESV SP 2CH (A/L) 105.94 ml - LA ESV BP (A/L) 109.53 ml - LA ESV BP (A/L) index 43.12 ml/m2 - LA ESV SP 4CH (MOD) 99.26 ml - LA ESV SP 2CH (MOD) 97.49 ml - LA ESV BP (MOD) 102.57 ml - LA ESV BP (MOD) index 40.38 ml/m2 - Diastolic/Systolic Function Name Value Normal Range MV E-wave Vmax 0.68 m/sec - MV deceleration time 160.76 msec - MV A-wave Vmax 0.23 m/sec - MV E:A ratio 2.92 ratio - Aortic Valve Name Value Normal Range AV Vmax 1.26 m/sec - AV VTI 22.99 cm - AV peak gradient 6.31 mmHg - AV mean gradient 3.91 mmHg - LVOT diameter 2.53 cm - LVOT Vmax 0.93 m/sec - LVOT VTI 15.02 cm - LVOT peak gradient 3.43 mmHg - LVOT mean gradient 1.72 mmHg - SV LVOT 75.33 ml - ADDISON (continuity Vmax) 3.7 cm2 - ADDISON (continuity VTI) 3.28 cm2 - AR PHT 2172.29 msec - AR peak gradient 57.48 mmHg - Ascending Ao 3.62 cm - Mitral Valve Name Value Normal Range MR Vmax 4.67 m/sec - Tricuspid Valve Name Value Normal Range TR Vmax 2.38 m/sec - TR peak gradient 22 mmHg - RAP 15 mmHg - RVSP 37 mmHg - IVC diameter 3 cm (1.2 - 2.3) Pulmonic Valve/Qp:Qs Name Value Normal Range PV Vmax 0.76 m/sec - PV peak gradient 2.33 mmHg - WA end-diastolic Vmax 0.86 m/sec - PV acceleration time 91.34 msec - Alvarez/IV: Voiding Method Toilet IV Catheter Type [Left Peripheral IV Antecubital] IV Catheter Type [Right Peripheral IV Forearm] Active Medications - Current Medications Current Medications: Generic Name Dose Route Start Last Admin Trade Name Freq PRN Reason Stop Dose Admin Acetaminophen 650 mg 10/11/20 23:37 Acetaminophen 325 Mg Tab PO Q4H PRN Pain MILD(1-3)/Fever >100.5/CHOI Albuterol 2 puff 10/11/20 23:51 Albuterol 8.5 Gm Mdi Inhalation IH Q4HRT PRN Shortness Of Breath Amlodipine Besylate 10 mg 10/12/20 15:00 10/13/20 10:38 Amlodipine 10 Mg Tab PO 10 mg QDAY MACIE Administration Aspirin 81 mg 10/12/20 10:00 10/13/20 10:38 Aspirin 81 Mg Tab Chew PO 81 mg QDAY MACIE Administration Atorvastatin Calcium 20 mg 10/12/20 22:00 10/12/20 22:34 Atorvastatin 20 Mg Tab PO 20 mg QHS MACIE Administration Bisacodyl 10 mg 10/11/20 23:37 Bisacodyl 10 Mg Rect Supp WA QDAY PRN Constipation unrelieved by DEANGELO Ramosol 12.5 mg 10/12/20 22:00 10/13/20 10:38 Carvedilol 12.5 Mg Tab PO 12.5 mg BID MACIE Administration Docusate Sodium 100 mg 10/12/20 10:00 10/13/20 10:38 Docusate Sodium 100 Mg Cap PO 100 mg BID MACIE Administration Enoxaparin Sodium 40 mg 10/12/20 22:00 10/12/20 22:34 Enoxaparin 40 Mg/0.4 Ml Inj SUB-Q 40 mg QDAY@2200 [facility] Administration Protocol Fluticasone Propionate 50 mcg 10/12/20 10:00 10/13/20 10:39 Fluticasone Propionate Nasal K[place] 16 Gm NS 50 mcg QDAY MACIE Administration Furosemide 40 mg 10/12/20 10:00 10/13/20 10:39 Furosemide 40 Mg/4 Ml Inj IV 40 mg QDAY MACIE Administration Hydralazine HCl 10 mg 10/12/20 03:39 10/12/20 20:32 Hydralazine 20 Mg/1 Ml Inj IV 10 mg Q4H PRN Administration Blood Pressure Losartan Potassium 50 mg 10/12/20 10:00 10/13/20 10:37 Losartan 50 Mg Tab PO 50 mg QDAY MACIE Administration Ondansetron HCl 4 mg 10/11/20 23:37 Ondansetron 4 Mg/2 Ml Inj IV Q6H PRN Nausea And Vomiting Oxycodone/Acetaminophen 1 tab 10/11/20 23:37 10/13/20 00:15 Oxycodone /Acetaminophen 5-325mg Tab PO 1 tab Q6H PRN Administration Pain, Moderate (4-6) Sodium Chloride 10 ml 10/12/20 10:00 10/13/20 10:40 Sodium Chloride 0.9% 10 Ml Flush Syringe IV 10 ml BID MACIE Administration Sodium Chloride 10 ml 10/11/20 23:37 10/12/20 20:32 Sodium Chloride 0.9% 10 Ml Flush Syringe IV 10 ml PRN PRN Administration LINE FLUSH
[2020-10-13] MEDS: ENOXAPARIN 40 MG/0.4 ML INJ SUB-Q SCH (23:03)
[2020-10-14 06:01] LABS: BUN/Creatinine Ratio 25; Blood Urea Nitrogen 28 mg/dL (9-20); Calcium 10.1 mg/dL (8.4-10.2); Hemolysis Index 8; INR 1.12 (0.87-1.13)
[2020-10-14 06:08] LABS: Basophils # (Auto) 0.1 K/mm3 (0.0-0.1); Basophils % (Auto) 0.9 % (0.0-1.8); Eosinophils # (Auto) 0.1 K/mm3 (0.0-0.4); Eosinophils % (Auto) 1.6 % (0.0-4.3); Hematocrit 31.6 % (35.5-45.6); Hemoglobin 10.2 gm/dl (11.8-15.2); Lymphocytes # (Auto) 1.1 K/mm3 (1.2-5.4); Lymphocytes % (Auto) 16.3 % (13.4-35.0); Mean Corpuscular HGB Conc 32 % (32-34); Mean Corpuscular Volume 73 fl (84-94); Monocytes # (Auto) 0.6 K/mm3 (0.0-0.8); Monocytes % (Auto) 8.8 % (0.0-7.3); Platelet Count 301 K/mm3 (140-440); Red Blood Count 4.33 M/mm3 (3.65-5.03); Red Cell Distribution Width 18.5 % (13.2-15.2)
[2020-10-14] MEDS ORDERED: HEPARIN/NS 5000 UNIT/500ML 1,000 ML IR ONE (07:14)
[2020-10-14] MEDS ORDERED: fentaNYL 100 MCG/2 ML INJ ONE (07:15)
[2020-10-14] MEDS ORDERED: LIDOCAINE (2%) 20 MG/1 ML VIAL 20 ML MDV INFILTRATI ONE (07:15)
[2020-10-14] MEDS ORDERED: MIDAZOLAM 2 MG/2 ML INJ ONE (07:15)
[2020-10-14] MEDS ORDERED: NITROGLYCERIN SYRINGE 3 ML ONE (07:15)
[2020-10-14] MEDS ORDERED: SODIUM CHLORIDE 0.9% 500 ML 500 ML ONE (07:48)
[2020-10-14] MEDS ORDERED: ASPIRIN 81 MG TAB CHEW ONE (07:54)
[2020-10-14] MEDS: HEPARIN 10,000 UNITS/10 ML VIAL ONE ×2 (08:09→08:12)
[2020-10-14] MEDS: VERAPAMIL 5 MG/2 ML INJ ONE ×2 (08:10→08:12)
--- NOTE | 2020-10-14 08:47 | Cardiac Catherization Report ---
REFERRING PHYSICIAN: Dr. Villa. INDICATION FOR PROCEDURE: The patient is a very pleasant 55-year-old -[place] gentleman found to have a severe cardiomyopathy, referred for left heart catheterization. Risks, benefits, potential alternatives explained at length prior to obtaining informed consent. PROCEDURE IN DETAIL: The patient was brought to catheterization lab in a postabsorptive state, prepped and draped in sterile fashion. Sergio's test remains normal. A 2 mL of 2% lidocaine used to anesthetize the right wrist. A standard 6-[place] hydrophilic sheath used to cannulate the right radial artery via modified Seldinger technique. All exchanges performed to exchange a J-tip guidewire. JL3.5 catheter used to engage the left main. No dampening or ventricularization. Cineangiography performed in all projections. JR4 catheter was used to cross the aortic valve under fluoroscopic guidance. Left ventriculography performed in 30 CHRISTIANSEN and 30 UG[place]AN projections via hand injections, catheter flushed. Manual pullback performed with continuous pressure monitoring. Catheter used to engage the right coronary. No dampening or ventricularization. Cineangiography performed in all projections. Next, catheter removed from the body of wire, sheath removed. Manual pressure used to achieve hemostasis. I directly supervised the administration of moderate sedation from 8:00 a.m. to 8:35 a.m. No immediate complications identified. DATA: Aortic pressure is 130/90, LV pressure is 130, LVP of 30 mmHg. Left ventriculography reveals severe global left ventricular hypokinesis, estimated ejection fraction of 20-25%. No evidence of aortic stenosis is noted. Mildly elevated LVEDP. CORONARY ANATOMY: This is a right dominant system. It should be noticed there is diffuse mild to moderate coronary ectasia throughout the right and left coronary trees, specifically proximally. Scattered luminal irregularities, but no obstructive disease, BRIAN 2 flow throughout, diameter of the proximal right coronary is probably 6-7 mm, left main without significant disease, trifurcates left anterior descending, ramus intermedius, and left circumflex. Again proximal ectasia noted BRIAN 2 flow throughout. No significant obstructive disease identified. This is a right dominant system. CONCLUSIONS: 1. 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 Diffuse BRIAN 2 flow may represent an endothelial dysfunction. 2. Severe global left ventricular hypokinesis, estimated ejection fraction 20-25%. 3. No evidence of aortic stenosis. 4. Mildly elevated LVEDP. 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 He is nearing euvolemia, but not quite there. Continue IV Lasix, standard radial care. Results of procedure explained in length to the patient. All questions and concerns were addressed. JOB# [id number] SBM/NTS
[2020-10-14] MEDS: ASPIRIN 81 MG TAB CHEW PO SCH (09:02)
[2020-10-14] MEDS: DOCUSATE SODIUM 100 MG CAP PO SCH ×2 (09:02→22:05)
[2020-10-14] MEDS: carvediloL 12.5 MG TAB PO SCH ×2 (09:02→22:06)
[2020-10-14] MEDS: amLODIPine 10 MG TAB PO SCH (09:03)
[2020-10-14] MEDS: FUROSEMIDE 40 MG/4 ML INJ IV SCH (09:03)
[2020-10-14] MEDS: LOSARTAN 50 MG TAB PO SCH (09:03)
[2020-10-14] MEDS: FLUTICASONE PROPIONATE NASAL SPRAY 16 GM NS SCH (09:26)
--- NOTE | 2020-10-14 10:06 | Progress Note ---
Assessment and Plan - Patient Problems (1) Acute HFrEF (heart failure with reduced ejection fraction) Current Visit: Yes Status: Acute (2) Acute heart failure Current Visit: Yes Status: Acute (3) Anemia Current Visit: Yes Status: Acute (4) Cardiomyopathy Current Visit: Yes Status: Acute (5) Elevated LFTs Current Visit: Yes Status: Acute (6) Elevated brain natriuretic peptide (BNP) level Current Visit: Yes Status: Acute (7) Hypertensive urgency Current Visit: Yes Status: Acute Subjective Date of service: 10/14/20 Principal diagnosis: HF Interval history: less sob Objective Vital Signs Temp Pulse Pulse Pulse Resp BP BP 10/14/20 09:03 67 131/90 10/14/20 09:02 67 131/90 10/14/20 08:58 98.1 F 67 16 131/90 10/14/20 05:29 98.3 F 66 18 139/95 10/14/20 00:36 98.2 F 67 20 108/72 10/13/20 23:03 129/82 10/13/20 20:21 98.3 F 65 19 129/82 10/13/20 17:00 61 10/13/20 14:51 97.4 F L 65 20 117/78 10/13/20 12:00 97.9 F 89 22 132/87 10/13/20 11:42 67 10/13/20 10:38 66 142/100 10/13/20 10:37 66 142/100 10/13/20 10:36 66 142/100 10/13/20 10:00 79 79 20 Pulse Ox 10/14/20 09:03 10/14/20 09:02 10/14/20 08:58 98 10/14/20 05:29 85 10/14/20 00:36 93 10/13/20 23:03 10/13/20 20:21 97 10/13/20 17:00 10/13/20 14:51 91 10/13/20 12:00 2 L 10/13/20 11:42 95 10/13/20 10:38 10/13/20 10:37 10/13/20 10:36 90 10/13/20 10:00 98 - Physical Examination General: No Apparent Distress, Other (obese) HEENT: Positive: PERRL, Normocephaly, Mucus Membranes Moist Neck: Positive: neck supple, trachea midline Neuro: Positive: Grossly Intact Abdomen: Negative: Tender Skin: Negative: Rash Musculoskeletal: No Pain Extremities: Present: +1 Edema (BLE) - Labs and Meds Coagulation 10/14/20 Range/Units 04:41 PT 14.3 (12.2-14.9) Sec. INR 1.12 (0.87-1.13) CBC 10/14/20 Range/Units 04:41 WBC 6.6 (4.5-11.0) K/mm3 RBC 4.33 (3.65-5.03) M/mm3 Hgb 10.2 L (11.8-15.2) gm/dl Hct 31.6 L (35.5-45.6) % Plt Count 301 (140-440) K/mm3 Lymph # (Auto) 1.1 L (1.2-5.4) K/mm3 [place] # (Auto) 0.6 (0.0-0.8) K/mm3 Eos # (Auto) 0.1 (0.0-0.4) K/mm3 Baso # (Auto) 0.1 (0.0-0.1) K/mm3 Comprehensive Metabolic Panel 10/14/20 Range/Units 04:41 Sodium 135 L (137-145) mmol/L Potassium 4.2 (3.6-5.0) mmol/L Chloride 103.5 (98-107) mmol/L Carbon Dioxide 24 (22-30) mmol/L BUN 28 H (9-20) mg/dL Creatinine 1.1 (0.8-1.3) mg/dL Glucose 99 (75-100) mg/dL Calcium 10.1 (8.4-10.2) mg/dL - Imaging and Cardiology EKG: report reviewed, image reviewed Echo: report reviewed - EKG Sinus rhythms and dysrhythmias: sinus rhythm Chamber hypertrophy or enlargement: left ventricular hypertro
--- NOTE | 2020-10-14 14:35 | Progress Note ---
Assessment and Plan S/p C today which showed mod prox RCA and left coronary ectasia without evidence of obstructive disease, EF 20-25%, elevated LVEDP. Pt noted to have some sinus bradycardia overnight - suspect ALEXANDR. Initiate PM CPAP and recommend OP sleep study per primary team. Cont present cardiac management, including IV lasix BID, coreg, losartan. A nticipate d/c within next 24-48Hrs. The patient has been seen in conjunction with Dr. Gracy Bond who agrees with the assessment and plan of care. 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 tele reviewed - in SR HR 50s - 70s. Objective Last Vital Signs Temp 97.4 F L 10/14/20 12:13 Pulse 67 10/14/20 12:13 Resp 17 10/14/20 12:13 BP 127/90 10/14/20 12:13 Pulse Ox 95 10/14/20 12:13 - Physical Examination General: No Apparent Distress HEENT: Positive: PERRL, Normocephaly, Mucus Membranes Moist Neck: Positive: neck supple, trachea midline Cardiac: Positive: Reg Rate and Rhythm, S1/S2 Lungs: Positive: Decreased Breath Sounds Neuro: Positive: Grossly Intact Abdomen: Negative: Tender Skin: Negative: Rash Musculoskeletal: No Pain Extremities: Present: +1 Edema (BLE) - Labs and Meds Coagulation 10/14/20 Range/Units 04:41 PT 14.3 (12.2-14.9) Sec. INR 1.12 (0.87-1.13) CBC 10/14/20 Range/Units 04:41 WBC 6.6 (4.5-11.0) K/mm3 RBC 4.33 (3.65-5.03) M/mm3 Hgb 10.2 L (11.8-15.2) gm/dl Hct 31.6 L (35.5-45.6) % Plt Count 301 (140-440) K/mm3 Lymph # (Auto) 1.1 L (1.2-5.4) K/mm3 [place] # (Auto) 0.6 (0.0-0.8) K/mm3 Eos # (Auto) 0.1 (0.0-0.4) K/mm3 Baso # (Auto) 0.1 (0.0-0.1) K/mm3 Comprehensive Metabolic Panel 10/14/20 Range/Units 04:41 Sodium 135 L (137-145) mmol/L Potassium 4.2 (3.6-5.0) mmol/L Chloride 103.5 (98-107) mmol/L Carbon Dioxide 24 (22-30) mmol/L BUN 28 H (9-20) mg/dL Creatinine 1.1 (0.8-1.3) mg/dL Glucose 99 (75-100) mg/dL Calcium 10.1 (8.4-10.2) mg/dL - Imaging and Cardiology EKG: report reviewed, image reviewed Echo: report reviewed (EF 20-25%, mild LVH, LA mildly dilated, RV mod dilated, mild MR. ) - Telemetry EKG Rhythm: Sinus Rhythm - EKG Sinus rhythms and dysrhythmias: sinus rhythm Chamber hypertrophy or enlargement: left ventricular hypertro
--- NOTE | 2020-10-14 15:16 | Progress Note ---
Assessment and Plan Assessment and plan: Acute Systolic heart failure -10/11 proBNP 2622 -Cardiology consulted, appreciate recommendations -Troponins: 0.025, 0.027, 0.028 -BB, ACEi, Diuretic, ARB, ASA -Strict intake and output -Daily weights -Heart failure education -10/11 TTE shows mild concentric left ventricular hypertrophy, severe global hyp okinesis of the left ventricle, global left ventricular systolic function is severely decreased with estimated ejection fraction of 20 to 25%, low ventricular diastolic filling pattern is restrictive, mildly dilated LA, moderately dilated RV V, mild MR with no pericardial effusion -Cardiology plans to perform left heart catheterization for further evaluation tomorrow -10/14 left heart cath showed moderate proximal RCA and left coronary ectasia without evidence of obstructive disease, ejection fraction 20 to 25% elevated left ventricular end-diastolic pressure -Per cardiology: Anticipate discharge within next 24-48Hrs. Elevated D-dimer -10/11 D-dimer 391.27 -CT chest negative for PE Hypercalcemia -Presents with a calcium 10.6 -Trend calcium -10/13 calcium 10.2 Transaminitis -Presented with T bili 1.5, AST 60, ALT 74, alk phos 134 -Patient denies excessive alcohol use but is obese -10/12 hepatitis panel reactive for hepatitis C -Trend LFTs Hypertensive urgency -Presented with BP of 192/136 -S/p labetalol 20 mg IV, metoprolol 5 mg IV, amlodipine 10 mg p.o. -BB, ACEi, ARB, diuretic -BP monitoring per protocol -Hydralazine as needed for SBP greater than 160 Acute hypoxic respiratory failure -Currently on 4 L supplemental oxygen with saturation of 94 to 96% -Supplemental oxygen as needed -Pulmonary hygiene -SPO2 monitoring -Patient noted to have bradycardia overnight on 10/14 therefore cardiology has initiated CPAP therapy nightly -Follow-up with pulmonology outpatient to obtain sleep study for possible ALEXANDR Anemia -Stable at 10.1 -No S/S of active bleeding -Monitor -Transfuse as needed DVT PPX -On Lovenox -GI prophylaxis -SCDs to bilateral lower extremity while in bed COVID-19 PUI, ruled out -10/11 CXR shows bilateral interstitial infiltrates. -Patient states on 10/08 he tested negative for COVID-19 -10/12 COVID-19 PCR negative History Interval history: This is a 55-year-old male with hypertension and history of hepatitis C who was admitted on 10/11 secondary to complaints of left upper quadrant abdominal pain for 4 weeks, midsternal 6/10 chest pain and shortness of breath and dyspnea on exertion. Recommend emergency department included a CXR which showed bilateral interstitial infiltrates, elevated D-dimer, elevated proBNP and physical exam consistent with acute CHF exacerbation. Patient was admitted to the hospital service as a COVID-19 PUI and acute congestive heart failure. Infectious disease and cardiology were consulted. 10/12: At the time my exam patient remains on supplemental oxygenation, states that he has BENNETT and a slight cough. No acute events reported overnight. COVID- 19 PCR negative and transferred to telemetry 10/13: At the time of my exam patient states that he feels much better. No acute events reported overnight. Cardiology plans to perform a left heart cath in the a.m. Patient will be n.p.o. after midnight. 10/14: s/p LHC, noted SB overnight and cardiology initiated CPAP qhs and recommends outpatient pulm f/u for sleep study. Hospitalist Physical - Constitutional Vitals: Temp Pulse Resp BP Pulse Ox 97.4 F L 67 17 127/90 95 10/14/20 12:13 10/14/20 12:13 10/14/20 12:13 10/14/20 12:13 10/14/20 12:13 General appearance: Present: no acute distress, obese - EENT Eyes: Present: EOM intact ENT: hearing intact, clear oral mucosa, poor dentition - Neck Neck: Present: normal ROM - Respiratory Respiratory effort: normal Respiratory: bilateral: CTA, diminished - Cardiovascular Rhythm: regular Heart Sounds: Present: S1 & S2. Absent: systolic murmur, diastolic murmur - Extremities Extremities: no ischemia, pulses intact, pulses symmetrical, No edema, normal temperature, normal color, Full ROM Peripheral Pulses: within normal limits - Abdominal General gastrointestinal: soft, non-tender, non-distended, normal bowel sounds - Integumentary Integumentary: Present: clear, warm, dry - Psychiatric Psychiatric: appropriate mood/affect, cooperative - Neurologic Neurologic: CNII-XII intact, no focal deficits, moves all extremities - Allied Health Allied health notes reviewed: nursing, PT HEART Score - HEART Score EKG: Normal Age: 45-65 Risk factors: No known risk factors Troponin: Troponin T 0.028 ng/mL (0.00-0.029) 10/11/20 20:31 Troponin: 1-3x normal limit - Critical Actions Critical Actions: 0-3 pts:0.9-1.7%risk of adverse cardiac event.Candidate for discharge Results - Labs CBC & Chem 7: 10/14/20 04:41 10/14/20 04:41 Labs: Laboratory Last Values WBC 6.6 K/mm3 (4.5-11.0) 10/14/20 04:41 RBC 4.33 M/mm3 (3.65-5.03) 10/14/20 04:41 Hgb 10.2 gm/dl (11.8-15.2) L 10/14/20 04:41 Hct 31.6 % (35.5-45.6) L 10/14/20 04:41 MCV 73 fl (84-94) L 10/14/20 04:41 MCH 24 pg (28-32) L 10/14/20 04:41 MCHC 32 % (32-34) 10/14/20 04:41 RDW 18.5 % (13.2-15.2) H 10/14/20 04:41 Plt Count 301 K/mm3 (140-440) 10/14/20 04:41 Lymph % (Auto) 16.3 % (13.4-35.0) 10/14/20 04:41 Sabine % (Auto) 8.8 % (0.0-7.3) H 10/14/20 04:41 Eos % (Auto) 1.6 % (0.0-4.3) 10/14/20 04:41 Baso % (Auto) 0.9 % (0.0-1.8) 10/14/20 04:41 Lymph # (Auto) 1.1 K/mm3 (1.2-5.4) L 10/14/20 04:41 Sabine # (Auto) 0.6 K/mm3 (0.0-0.8) 10/14/20 04:41 Eos # (Auto) 0.1 K/mm3 (0.0-0.4) 10/14/20 04:41 Baso # (Auto) 0.1 K/mm3 (0.0-0.1) 10/14/20 04:41 Seg Neutrophils % 72.4 % (40.0-70.0) H 10/14/20 04:41 Seg Neutrophils # 4.8 K/mm3 (1.8-7.7) 10/14/20 04:41 PT 14.3 Sec. (12.2-14.9) 10/14/20 04:41 INR 1.12 (0.87-1.13) 10/14/20 04:41 APTT 33.5 Sec. (24.2-36.6) 10/11/20 12:55 D-Dimer 277.46 ng/mlDDU (0-234) H 10/13/20 05:50 Sodium 135 mmol/L (137-145) L 10/14/20 04:41 Potassium 4.2 mmol/L (3.6-5.0) 10/14/20 04:41 Chloride 103.5 mmol/L (98-107) 10/14/20 04:41 Carbon Dioxide 24 mmol/L (22-30) 10/14/20 04:41 Anion Gap 12 mmol/L 10/14/20 04:41 BUN 28 mg/dL (9-20) H 10/14/20 04:41 Creatinine 1.1 mg/dL (0.8-1.3) 10/14/20 04:41 Estimated GFR > 60 ml/min 10/14/20 04:41 BUN/Creatinine Ratio 25 % 10/14/20 04:41 Glucose 99 mg/dL (75-100) 10/14/20 04:41 POC Glucose 114 mg/dL (70-105) H 10/13/20 21:20 Hemoglobin A1c 6.7 % (4-6) H 10/11/20 12:55 Calcium 10.1 mg/dL (8.4-10.2) 10/14/20 04:41 Ferritin 32.1 ng/mL (30.0-300.0) 10/13/20 05:50 Total Bilirubin 1.30 mg/dL (0.1-1.2) H 10/13/20 05:50 AST 54 units/L (5-40) H 10/13/20 05:50 ALT 74 units/L (7-56) H 10/13/20 05:50 Alkaline Phosphatase 129 units/L (35-129) 10/13/20 05:50 Lactate Dehydrogenase 378 units/L (91-180) H 10/13/20 05:50 Troponin T 0.028 ng/mL (0.00-0.029) 10/11/20 20:31 C-Reactive Protein 0.60 mg/dL (0.00-1.30) 10/13/20 05:50 NT-Pro-B Natriuret Pep 2622 pg/mL (0-900) H 10/11/20 12:55 Total Protein 6.6 g/dL (6.3-8.2) 10/13/20 05:50 Albumin 3.3 g/dL (3.9-5) L 10/13/20 05:50 Albumin/Globulin Ratio 1.0 % 10/13/20 05:50 Triglycerides 74 mg/dL (2-149) 10/11/20 20:20 Cholesterol 145 mg/dL (50-199) 10/11/20 20:20 LDL Cholesterol Direct 105 mg/dL (50-130) 10/11/20 20:20 HDL Cholesterol 35 mg/dL (40-59) L 10/11/20 20:20 Cholesterol/HDL Ratio 4.14 % 10/11/20 20:20 Procalcitonin 0.05 ng/mL (<0.15) 10/11/20 20:26 Urine Opiates Screen Presumptive negative 10/12/20 03:01 Urine Methadone Screen Presumptive negative 10/12/20 03:01 Ur Barbiturates Screen Presumptive negative 10/12/20 03:01 Ur Phencyclidine Scrn Presumptive negative 10/12/20 03:01 Ur Amphetamines Screen Presumptive negative 10/12/20 03:01 U Benzodiazepines Scrn Presumptive negative 10/12/20 03:01 Urine Cocaine Screen Presumptive negative 10/12/20 03:01 U Marijuana (THC) Screen Presumptive negative 10/12/20 03:01 Drugs of Abuse Note Disclamer 10/12/20 03:01 Coronavirus (PCR) Negative (Negative) 10/12/20 Unknown Hepatitis A IgM Ab Non-reactive (NonReactive) 10/11/20 20:20 Hep Bs Antigen Non-reactive (Negative) 10/11/20 20:20 Hep B Core IgM Ab Non-reactive (NonReactive) 10/11/20 20:20 Hepatitis C Antibody Non-reactive (NonReactive) 10/11/20 20:20 - Diagnostic Impressions Diagnostic Impressions: Echocardiogram 10/11/20 23:39 Transthoracic Echocardiogram Indication: Elevated Trop BP: 153/109 HR: 58 Conclusions *Mild concentric left ventricular hypertrophy is observed. *Severe global hypokinesis of the left ventricle is observed. *Global left ventricular systolic function is severely decreased. *The estimated ejection fraction is 20-25%. *The left ventricular diastolic filling pattern is restrictive. *The left atrium is mildly dilated. *The right ventricle is moderately dilated. *There is mild mitral regurgitation. *There is no pericardial effusion. Findings Left Ventricle: The left ventricular chamber size is severely dilated. Mild concentric left ventricular hypertrophy is observed. Severe global hypokinesis of the left ventricle is observed. Global left ventricular systolic function is severely decreased. The estimated ejection fraction is 20-25%. The left ventricular diastolic filling pattern is restrictive. Left Atrium: The left atrium is mildly dilated. Right Ventricle: The right ventricle is moderately dilated. Right Atrium: The right atrium is mild to moderately dilated. Aortic Valve: The aortic valve leaflets are mildly thickened. There is trace of aortic regurgitation. Mitral Valve: The mitral valve leaflets are mildly thickened. There is mild mitral regurgitation. Tricuspid Valve: The right ventricular systolic pressure is calculated at 37 mmHg. There is evidence of mild pulmonary hypertension. Pulmonic Valve: The pulmonic valve appears normal. There is trace pulmonic regurgitation. Pericardium: There is no pericardial effusion. Aorta: The aorta appears normal. Venous: The inferior vena cava is dilated. There is less than 50% respiratory change in the inferior vena cava dimension. Measurements Chambers 2D Name Value Normal Range IVSd (2D) 1.29 cm (0.6 - 1.1) LVPWd (2D) 1.22 cm (0.6 - 1.1) LVIDd (2D) 6.49 cm (3.7 - 5.6) LVIDs (2D) 5.85 cm (2 - 3.8) LV FS (2D) 9.77 % - EF Teichholz (2D) 20.89 % - Ao root diameter (2D) 3.94 cm (2 - 3.7) Volumes/Mass Name Value Normal Range LA ESV SP 4CH (A/L) 102.35 ml - LA ESV SP 2CH (A/L) 105.94 ml - LA ESV BP (A/L) 109.53 ml - LA ESV BP (A/L) index 43.12 ml/m2 - LA ESV SP 4CH (MOD) 99.26 ml - LA ESV SP 2CH (MOD) 97.49 ml - LA ESV BP (MOD) 102.57 ml - LA ESV BP (MOD) index 40.38 ml/m2 - Diastolic/Systolic Function Name Value Normal Range MV E-wave Vmax 0.68 m/sec - MV deceleration time 160.76 msec - MV A-wave Vmax 0.23 m/sec - MV E:A ratio 2.92 ratio - Aortic Valve Name Value Normal Range AV Vmax 1.26 m/sec - AV VTI 22.99 cm - AV peak gradient 6.31 mmHg - AV mean gradient 3.91 mmHg - LVOT diameter 2.53 cm - LVOT Vmax 0.93 m/sec - LVOT VTI 15.02 cm - LVOT peak gradient 3.43 mmHg - LVOT mean gradient 1.72 mmHg - SV LVOT 75.33 ml - ADDISON (continuity Vmax) 3.7 cm2 - ADDISON (continuity VTI) 3.28 cm2 - AR PHT 2172.29 msec - AR peak gradient 57.48 mmHg - Ascending Ao 3.62 cm - Mitral Valve Name Value Normal Range MR Vmax 4.67 m/sec - Tricuspid Valve Name Value Normal Range TR Vmax 2.38 m/sec - TR peak gradient 22 mmHg - RAP 15 mmHg - RVSP 37 mmHg - IVC diameter 3 cm (1.2 - 2.3) Pulmonic Valve/Qp:Qs Name Value Normal Range PV Vmax 0.76 m/sec - PV peak gradient 2.33 mmHg - AZ end-diastolic Vmax 0.86 m/sec - PV acceleration time 91.34 msec - Alvarez/IV: Voiding Method Urinal IV Catheter Type [Left Peripheral IV Antecubital] IV Catheter Type [Right Peripheral IV Forearm] Active Medications - Current Medications Current Medications: Generic Name Dose Route Start Last Admin Trade Name Freq PRN Reason Stop Dose Admin Acetaminophen 650 mg 10/11/20 23:37 Acetaminophen 325 Mg Tab PO Q4H PRN Pain MILD(1-3)/Fever >100.5/CHOI Albuterol 2 puff 10/11/20 23:51 Albuterol 8.5 Gm Mdi Inhalation IH Q4HRT PRN Shortness Of Breath Amlodipine Besylate 10 mg 10/12/20 15:00 10/14/20 09:03 Amlodipine 10 Mg Tab PO 10 mg QDAY MACIE Administration Aspirin 81 mg 10/12/20 10:00 10/14/20 09:02 Aspirin 81 Mg Tab Chew PO Not Given QDAY MACIE Atorvastatin Calcium 20 mg 10/12/20 22:00 10/13/20 23:02 Atorvastatin 20 Mg Tab PO 20 mg QHS MACIE Administration Bisacodyl 10 mg 10/11/20 23:37 Bisacodyl 10 Mg Rect Supp [place] QDAY PRN Constipation unrelieved by MOM Carvedilol 12.5 mg 10/12/20 22:00 10/14/20 09:02 Carvedilol 12.5 Mg Tab PO 12.5 mg BID MACIE Administration Docusate Sodium 100 mg 10/12/20 10:00 10/14/20 09:02 Docusate Sodium 100 Mg Cap PO 100 mg BID MACIE Administration Enoxaparin Sodium 40 mg 10/12/20 22:00 10/13/20 23:03 Enoxaparin 40 Mg/0.4 Ml Inj SUB-Q 40 mg QDAY@2200 [facility] Administration Protocol Fluticasone Propionate 50 mcg 10/12/20 10:00 10/14/20 09:26 Fluticasone Propionate Nasal [place] 16 Gm NS Not Given QDAY MACIE Furosemide 40 mg 10/12/20 10:00 10/14/20 09:03 Furosemide 40 Mg/4 Ml Inj IV 40 mg QDAY MACIE Administration Hydralazine HCl 10 mg 10/12/20 03:39 10/12/20 20:32 Hydralazine 20 Mg/1 Ml Inj IV 10 mg Q4H PRN Administration Blood Pressure Losartan Potassium 50 mg 10/12/20 10:00 10/14/20 09:03 Losartan 50 Mg Tab PO 50 mg QDAY MCAIE Administration Ondansetron HCl 4 mg 10/11/20 23:37 Ondansetron 4 Mg/2 Ml Inj IV Q6H PRN Nausea And Vomiting Oxycodone/Acetaminophen 1 tab 10/11/20 23:37 10/13/20 00:15 Oxycodone /Acetaminophen 5-325mg Tab PO 1 tab Q6H PRN Administration Pain, Moderate (4-6) Sodium Chloride 10 ml 10/12/20 10:00 10/14/20 09:04 Sodium Chloride 0.9% 10 Ml Flush Syringe IV 10 ml BID MACIE Administration Sodium Chloride 10 ml 10/11/20 23:37 10/12/20 20:32 Sodium Chloride 0.9% 10 Ml Flush Syringe IV 10 ml PRN PRN Administration LINE FLUSH
[2020-10-14] MEDS: ENOXAPARIN 40 MG/0.4 ML INJ SUB-Q SCH (22:07)
[2020-10-15 05:52] LABS: BUN/Creatinine Ratio 22; Blood Urea Nitrogen 22 mg/dL (9-20); Calcium 10.1 mg/dL (8.4-10.2); Hemolysis Index 19
[2020-10-15] MEDS: ASPIRIN 81 MG TAB CHEW PO SCH (11:01)
[2020-10-15] MEDS: carvediloL 12.5 MG TAB PO SCH (11:01)
[2020-10-15] MEDS: DOCUSATE SODIUM 100 MG CAP PO SCH (11:01)
[2020-10-15] MEDS: LOSARTAN 50 MG TAB PO SCH (11:01)
[2020-10-15] MEDS: FUROSEMIDE 40 MG/4 ML INJ IV SCH (11:02)
[2020-10-15] MEDS: amLODIPine 10 MG TAB PO SCH (11:02)
[2020-10-15] MEDS: FLUTICASONE PROPIONATE NASAL SPRAY 16 GM NS SCH (11:42)
--- NOTE | 2020-10-15 11:58 | Progress Note ---
Assessment and Plan Acute on chronic systolic heart failure Dilated cardiomyopathy EF 20-25% Hyperlipidemia Hypertension ALEXANDR Okay to discharge home Follow-up with Dr. Yared Bond on his outpatient, Discharge home with amlodipine 10 mg daily, aspirin 81 mg daily, Lipitor 20 mg daily, carvedilol 12.5 mg twice daily, Lasix 40 mg daily, and Cozaar 50 mg daily. Recommend OP sleep study Subjective Date of service: 10/15/20 Principal diagnosis: HF Interval history: The patient is sitting up in the bed without any complaints. He denies any chest pain, shortness breath, or dizziness. Objective Vital Signs Temp Pulse Resp BP BP Pulse Ox 10/15/20 03:52 98.3 F 62 18 141/87 94 10/15/20 00:35 99 10/15/20 00:05 98.0 F 66 18 145/95 96 10/14/20 22:06 71 150/88 10/14/20 19:18 98.9 F 63 19 150/88 92 10/14/20 12:13 97.4 F L 67 17 127/90 95 - Physical Examination General: No Apparent Distress HEENT: Positive: PERRL, Normocephaly, Mucus Membranes Moist Neck: Positive: neck supple, trachea midline Cardiac: Positive: Reg Rate and Rhythm Lungs: Positive: Decreased Breath Sounds Neuro: Positive: Grossly Intact Abdomen: Positive: Soft, Active Bowel Sounds. Negative: Tender Skin: Negative: Rash Musculoskeletal: No Pain Extremities: Present: +1 Edema (BLE) - Labs and Meds Comprehensive Metabolic Panel 10/15/20 Range/Units 04:52 Sodium 137 (137-145) mmol/L Potassium 4.5 (3.6-5.0) mmol/L Chloride 104.1 (98-107) mmol/L Carbon Dioxide 29 (22-30) mmol/L BUN 22 H (9-20) mg/dL Creatinine 1.0 (0.8-1.3) mg/dL Glucose 100 (75-100) mg/dL Calcium 10.1 (8.4-10.2) mg/dL - Imaging and Cardiology EKG: report reviewed, image reviewed Echo: report reviewed (EF 20-25%, mild LVH, LA mildly dilated, RV mod dilated, mild MR. ) Cardiac cath: report reviewed (Diffuse BRIAN 2 Flow, LVEDP 30mmHg, Coronary ectasia w/o obstructive disease) - EKG Sinus rhythms and dysrhythmias: sinus rhythm Chamber hypertrophy or enlargement: left ventricular hypertro
--- NOTE | 2020-10-15 13:46 | Discharge Summary ---
Providers - Providers Date of Admission: 10/12/20 11:15 Date of discharge: 10/15/20 Attending physician: JARAD PAGE 10/11/20 23:37 Consult to Physician [CONS] Routine Comment: Consulting Provider: WILTON FLORIAN Physician Instructions: Reason For Exam: elevated BNP, ??newonset HF 10/11/20 23:40 Consult to Physician [CONS] Routine Comment: Consulting Provider: SERVANDO LEIJA Physician Instructions: Reason For Exam: COVID PUI Primary care physician: NOVELTY [employer] Hospitalization Reason for admission: Chest pain and worsening shortness of breath Condition: Fair Pertinent studies: CTA chest negative for PE CT abdomen and pelvis; no acute abnormality Chest x-ray; pulmonary congestion Echo; EF 20 to 25%, no pericardial effusion Procedures: 10/14 left heart cath : moderate proximal RCA and left coronary ectasia nonobstructive obstructive disease, EF 20 to 25% Hospital course: 55-year-old morbidly obese male patient with BMI of 45.4 was admitted through emergency room with left-sided chest pain and shortness of breath Chest x-ray showed bilateral interstitial edema, CTA chest negative for PE, patient was admitted to rule out acute coronary syndrome and PUI Damian PCR was negative, isolation was discontinued, patient was evaluated by cardiology, underwent echocardiogram showed 20 to 25% ejection fraction Subsequently had left heart catheterization, nonobstructive coronaries, EF of 20 to 25%, nonischemic cardiomyopathy Patient was placed on antifailure medications, symptoms slightly improved, Patient was counseled the importance of adhering to the treatment plan, patient also encouraged dietary modification exercise as tolerated and weight reduction when medically stable Cardiac medications were optimized, today he is comfortable no new complaints vital signs stable physical examination is unremarkable Patient is hemodynamically and clinically stable at discharge Discharge diagnosis: --Acute Systolic heart failure; EF 20 to 25% Cardiology evaluated the patient Continue antifailure medications including Follow-up cardiology upon discharge --Nonischemic cardiomyopathy; --Elevated D-dimer; negative PE on CTA --Hypercalcemia; resolved --Mild transaminitis; closely monitor If no improvement outpatient GI evaluation --Hypertensive urgency; present on admission Well controlled now on antihypertensives --Acute hypoxic respiratory failure; requiring 4 L of nasal cannula oxygen Secondary to obstructive sleep apnea, CPAP at night Follow private pulmonary upon discharge --COVID-19 PUI, negative test; COVID-19 ruled out Patient is hemodynamically and clinically stable at discharge Disposition: DC-01 TO HOME OR SELFCARE Time spent for discharge: 35 min Core Measure Documentation - Palliative Care Palliative Care/ Comfort Measures: Not Applicable - Core Measures Any of the following diagnoses?: heart failure - Heart Failure Discharge Requirements MIGNON/ARB for LVSD if EF <40%: Yes Beta vero at discharge: Yes Exam - Constitutional Vitals: Temp Pulse Resp BP Pulse Ox 98.3 F 62 18 141/87 94 10/15/20 03:52 10/15/20 03:52 10/15/20 03:52 10/15/20 03:52 10/15/20 03:52 General appearance: Present: no acute distress, well-nourished - EENT Eyes: Present: PERRL, EOM intact - Neck Neck: Present: supple, normal ROM - Respiratory Respiratory effort: normal Respiratory: bilateral: diminished, rales, negative: rhonchi, wheezing - Cardiovascular Rhythm: regular Heart Sounds: Present: S1 & S2 - Extremities Extremities: no ischemia, No edema - Abdominal General gastrointestinal: Present: soft, non-tender, non-distended, normal bowel sounds - Integumentary Integumentary: Present: clear, warm - Musculoskeletal Musculoskeletal: strength equal bilaterally, generalized weakness - Psychiatric Psychiatric: appropriate mood/affect, cooperative - Neurologic Neurologic: moves all extremities Plan Activity: advance as tolerated Diet: low salt, other (Cardiac diet) Additional Instructions: Low salt diet, fluid restriction to less than 1200 mL per [address] Follow [address] assayer Dr. Wilton Florian [phone] in 1 week. Advised to see private pulmonary, for outpatient sleep studies to rule out ALEXANDR. If you have worsening symptoms, contact MD or go to emergency room. Advised diet modification, exercise as tolerated and weight reduction when you are medically stable Follow up with: PRIMARY CARE, [Primary Care Provider] - 7 Days WILTON FLORIAN MD [Staff Physician] - 7 Days Forms: [facility] PCI D/C Instructions, Discharge Signature Page Prescriptions: RX: amLODIPine 10 mg PO QDAY #30 tablet RX: Aspirin [Aspirin BABY CHEW TAB] 81 mg PO QDAY #30 tab.chew RX: carvediloL [Coreg] 12.5 mg PO BID #60 tablet RX: Losartan [Cozaar] 50 mg PO QDAY #30 tablet Furosemide [Lasix TAB] 40 mg PO QDAY #30 tablet RX: AtorvaSTATin [Lipitor] 20 mg PO QHS #30 tablet
[2020-10-15 14:01] VITALS: BP 146/84
== END 2020-10-15 20:00 | disposition home or self-care (01) | DRG 871 ==
LOC: ED 11:32 → 3A 23:28 → OBSVTOIN 10-12 11:15 → 4A 10-12 22:56
PROVIDERS: ADMIT Hospitalist; ATTEND Internal Medicine
PROC: 4A023N7 Measurement of Cardiac Sampling and Pressure, Left Heart, Percutaneous Approach (ICD-10-PCS; principal; 2020-10-14)
PROC: B2151ZZ Fluoroscopy of Left Heart using Low Osmolar Contrast (ICD-10-PCS; 2020-10-14)
PROC: B2111ZZ Fluoroscopy of Multiple Coronary Arteries using Low Osmolar Contrast (ICD-10-PCS; 2020-10-14)
DX: A41.9 Sepsis, unspecified organism (principal); I50.23 Acute on chronic systolic (congestive) heart failure; J96.01 Acute respiratory failure with hypoxia; J18.9 Pneumonia, unspecified organism; N17.9 Acute kidney failure, unspecified; Z68.42 Body mass index [BMI] 45.0-49.9, adult; I42.8 Other cardiomyopathies; I16.0 Hypertensive urgency; R79.89 Other specified abnormal findings of blood chemistry; Z20.822 Contact with and (suspected) exposure to COVID-19; D64.9 Anemia, unspecified; R65.20 Severe sepsis without septic shock; I11.0 Hypertensive heart disease with heart failure; E66.01 Morbid (severe) obesity due to excess calories; E83.52 Hypercalcemia; I25.41 Coronary artery aneurysm; E78.5 Hyperlipidemia, unspecified; G47.33 Obstructive sleep apnea (adult) (pediatric); R74.01 Elevation of levels of liver transaminase levels
CPT/HCPCS: 36415; 71046; 71275; 74176; 80048; 80053; 80061; 80074; 80307; 82728; 82962; 83036; 83615; 83880; 84145; 84484; 85025; 85379; 85610; 85730; 86140; 93005; 93306; 94660; 96374; G0378; A9270-GY; J0360; J1644; J1650; J1940; J2250; J3010; J7040; J8540; Q9967; U0003